=== PATIENT | female | born 1945 | race Caucasian/White ===

== ENCOUNTER 2016-10-27 08:03 | Day surgery (SDC) | payer MEDICARE, OTHER ==
[2016-10-26 11:29] VITALS: BMI 27.3
[2016-10-27] VITALS (9 sets, daily range): BP systolic 101–154; BP diastolic 56–74; PULSE 84–98; RESP 16–21; Ht 154.9 cm; Wt 62.0 kg
[~2016-10-27] VITALS: Ht 154.9 cm; Wt 62.0 kg
[~2016-10-27 08:03] MED LIST: ASPI-664 PO; DEXL60CA2 PO; LACT10SO5 PO; LYR75 PO; OLME1TAB20 PO
[2016-10-27 09:19] LABS: BASOPHILS % 0.5 % (0.0-2.0); EOSINOPHILS # 0.1 10^3/ul (0.0-0.5); HEMATOCRIT 35.6 % (37.0-47.0); HEMOGLOBIN 11.9 g/dl (12.0-16.0); LYMPHOCYTES # 1.9 10^3/ul (0.8-2.9); LYMPHOCYTES % 24.9 % (15.0-51.0); MEAN CORPUSCULAR HEMOGLOBIN 30.4 pg (29.0-33.0); MEAN CORPUSCULAR HGB CONC 33.4 g/dl (32.0-37.0); MEAN CORPUSCULAR VOLUME 91.1 fl (82.0-101.0); MONOCYTE # 0.6 10^3/ul (0.3-0.9); MONOCYTES % 7.5 % (0.0-11.0); NEUTROPHIL # 4.9 10^3/ul (1.6-7.5); NEUTROPHILS % 65.1 % (39.0-77.0); PLATELET COUNT 267 10^3/UL (140-440); RED CELL DISTRIBUTION WIDTH 13.9 % (11.5-14.5); UNCORRECTED WBC 7.5 10^3/ul (4.8-10.8); WHITE BLOOD COUNT 7.5 10^3/ul (4.8-10.8)
[2016-10-27 09:21] LABS: CONDITION 1
[2016-10-27 09:27] LABS: POTASSIUM 4.3 mmol/L (3.5-5.1)
[2016-10-27 09:30] LABS: CALCIUM 9.7 mg/dl (8.4-10.2); CREATININE 1.03 mg/dl (0.44-1.00)
[2016-10-27] MEDS ORDERED: IOHEXOL 300MG/ML 30 ML BTL ONE (10:27)
[2016-10-27] MEDS ORDERED: HYDROmorphONE (0.2 MG/ML) 10ML SYG IV PRN ×3 (10:30)
[2016-10-27] MEDS ORDERED: MEPERIDINE 25 MG INJ IV PRN (10:30)
[2016-10-27] MEDS ORDERED: FENTAnyl 50 MCG/ML VIAL IV PRN ×2 (10:30)
[2016-10-27] MEDS ORDERED: ONDANSETRON 4 MG INJ IV PRN (10:30)
[2016-10-27] MEDS ORDERED: PROPOFOL 20 ML ONE ×2 (10:35→11:55)
[2016-10-27] MEDS ORDERED: FENTAnyl 50 MCG/ML VIAL ONE (10:35)
--- NOTE | 2016-10-27 10:40 | HPN ---
Date/Time of Note Date/Time of Note DATE: 10/27/16 TIME: 10:39 Interval H&P Admission Note Pt. seen H&P reviewed: No system changes JAMIE VELAZQUEZ MD Oct 27, 2016 10:39
--- NOTE | 2016-10-27 11:03 | RADRPT ---
Vent Rate: 94 bpm RR Interval: [address] Interval: 146 msec QRS Duration: 72 msec QT Interval: 330 msec QTC Interval: 412 msec P-R-T [place]: 50 - 50 - 36 degrees Normal sinus rhythm Possible Left atrial enlargement ST abnormality, possible digitalis effect Abnormal ECG Electronically Signed By: Azar Patel [id number]
--- NOTE | 2016-10-27 12:50 | RADRPT ---
PROCEDURE: Intraoperative imaging for ERCP with fluoroscopy. CLINICAL INDICATION: Right upper quadrant pain. Intraoperative. TECHNIQUE: 2 images of the right upper quadrant of the abdomen were obtained in the operating room with an image intensifier. No radiologist was in attendance. 8.7 seconds of fluoroscopy time was used. COMPARISON: CT scan of the abdomen and pelvis dated 08/19/2016 which demonstrated biliary obstruct ion and two plastic stents in the common bile duct. FINDINGS: Images demonstrate placement of a metallic stent in the common bile duct. IMPRESSION: 1. ERCP as described above. RPTAT: QQ .Lamonte Alvares MD, Date Time Electronically viewed and signed by .Lamonte Alvares MD, on 10/27/2016 12:50 .R/
--- NOTE | 2016-10-27 18:08 | GILP ---
DATE OF PROCEDURE: PROCEDURE PERFORMED: EGD and placement of duodenal stent. INDICATION: A 70-year-old female undergoing this procedure for duodenal bulb obstruction secondary to the tumor invading the pancreatic head. The patient also is suffering from the heartburn, loss o f appetite and very early satiety. INFORMED CONSENT: The risk of the procedure, related and unrelated complications, anesthetic risks, alternatives discussed and informed consent was obtained. DESCRIPTION OF PROCEDURE: The patient was brought to the GI lab, sedated by Dr. Fernández and after ob taining sedation, scope was passed with much ease into the esophagus. Upper endoscope was used. Du odenal bulb, there was a definite external compression from outside, which was formed to hard in con sistency, managed to push the compression and advance into the second part of the duodenum, both my biliary stents were identified. At this point, we passed a guidewire and created a coil inside the third part inside the jejunum. The scope was then gradually withdrawn. The duodenal stent to 16 to 22 successfully passed over the guidewire, scope was also upper endoscope passed by the side of the stent and the stent was successfully deployed. The baseline was seen, the baseline was identified. Scope was then gradually withdrawn with good patient tolerance. Patient's position of the stent w as excellent. IMPRESSION: 1. Duodenal stent successfully deployed for the obstruction near the bulb ____ the tumor from the p ancreas. 2. Erosive esophagitis. PLAN: To start on a liquid diet and advance it as tolerated by the patient. We will follow up the patient in the office in 1 week. Dictated By: JAMIE PAULINO/MARILUZ Conf#: [id number] DID#: [id number]
== END 2016-10-27 13:25 | disposition home or self-care (01) ==
LOC: SDS 08:03
PROVIDERS: ATTEND Internal Medicine Gastroenterology
DX: C25.0 Malignant neoplasm of head of pancreas (principal); K31.5 Obstruction of duodenum; K22.10 Ulcer of esophagus without bleeding; R12 Heartburn; K21.9 Gastro-esophageal reflux disease without esophagitis; R63.0 Anorexia; Z68.25 Body mass index [BMI] 25.0-25.9, adult; R68.81 Early satiety
CPT/HCPCS: 43266; 74000; 80048; 85025; 93005; C2617; J3010; Q9967

== ENCOUNTER 2016-12-13 13:57 | Inpatient (IN) | payer MEDICARE, OTHER ==
[~2016-12-13] VITALS: Ht 157.5 cm; Wt 60.0 kg
[2016-12-13] MEDS ORDERED: SOD CHLORIDE 0.9% 1,000 ML IV STA (17:01)
--- NOTE | 2016-12-13 17:18 | ERA ---
ER Documentation Chief Complaint Date/Time DATE: 12/13/16 TIME: 17:05 Chief Complaint gen ap and gen weakness for the past few months. 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 Generalized weakness is worsening to the point where she has difficulty walking and feels dizzy and lightheaded when standing. Ongoing mild to moderate, crampy and sharp, generalized upper abdominal pain with nausea but no vomiting, diarrhea or constipation. Denies hematemesis, hematochezia or melanotic stools. Denies headache or neck pain. No visual changes, focal weakness or numbness. Denies chest pain or palpitations. No shortness of breath or cough. Denies orthopnea or exertional dyspnea. No leg pain or swelling. No fevers or chills. ROS All systems reviewed and are negative except as per history of present illness. Medications Home Meds Reported Medications Acetaminophen* (Tylenol*) 500 Mg Tab, 500 MG PO Q4H Y for MILD PAIN LEVEL 1-3, TAB 12/13/16 Lubiprostone* (Amitiza*) 24 Mcg Capsule, 24 MCG PO DAILY, #30 CAP 12/13/16 Discontinued Reported Medications Pregabalin* (Lyrica*) 75 Mg Capsule, 75 MG PO BID, CAP 08/19/16 Lactulose* (Lactulose*) 10 Gm/15 Ml Solution, 10 GM PO Q8, ML 07/20/16 Aspirin (Low Dose Aspirin) 81 Mg Tablet., 81 MG PO DAILY, #30 TAB 07/20/16 Olmesartan-Hydrochlorothiazide (Benicar HCT) 40-25 Mg Tablet, 1 TAB PO DAILY, TAB 12/25/14 Dexlansoprazole (Dexilant) 60 Mg Cap., 60 MG PO DAILY, CAP 12/25/14 Allergies Allergies: Coded Allergies: No Known Allergy (Unverified , 12/13/16) PMhx/Soc Reviewed in chart. As per HPI. History of Surgery: Yes (ovarian cystectomy) Anesthesia Reaction: No Hx Neurological Disorder: No Hx Respiratory Disorders: No Hx Cardiac Disorders: Yes (htn) Hx Psychiatric Problems: No Hx Miscellaneous Medical Probl: Yes (vertigo) Hx Alcohol Use: No Hx Substance Use: No Hx Tobacco Use: No Smoking Status: Never smoker FmHx Reviewed in chart. As per HPI. Physical Exam Vitals Vital Signs Date Time Temp Pulse Resp B/P Pulse Ox O2 Delivery O2 Flow Rate FiO2 12/13/16 21:10 82 18 143/70 98 Room Air 12/13/16 18:47 83 18 133/61 98 Room Air 12/13/16 14:11 99.3 110 20 102/54 98 Physical Exam Const: Alert, ill-appearing in no acute distress. Head: Atraumatic Eyes: Normal Conjunctiva ENT: Normal External Ears, Nose and Mouth. Neck: Full range of motion. No JVD. Nontender Resp: Breath sounds diminished at the bases but otherwise clear to auscultation bilaterally Cardio: Regular rate and rhythm, no murmurs Abd: Soft, diffuse moderate upper abdominal tenderness, non distended. Normal bowel sounds. No rebound or guarding Skin: No petechiae or rashes Back: No midline or flank tenderness Ext: No cyanosis, or edema Neur: Awake and alert. No focal deficit observed Psych: Normal Mood and Affect Result Diagram: 12/14/1643412/14/16 0435 Results 24 hrs Laboratory Tests Test 12/13/16 19:30 Alanine Aminotransferase (ALT/SGPT) 33IU/L Albumin 2.3g/dl Albumin/Globulin Ratio 0.44 Alkaline Phosphatase 1209IU/L Anion Gap 13 Aspartate Amino Transf (AST/SGOT) 41IU/L Basophils # 0.010^3/ul Basophils % 0.4% Blood Urea Nitrogen 14mg/dl Calcium Level 8.2mg/dl Carbon Dioxide Level 21mmol/L Chloride Level 96mmol/L Creatinine 0.82mg/dl Direct Bilirubin 0.00mg/dl Eosinophils # 0.110^3/ul Eosinophils % 0.7% Globulin 5.20g/dl Glucose Level 286mg/dl Hematocrit 31.7% Hemoglobin 10.9g/dl Indirect Bilirubin 0.0mg/dl Lipase 50U/L Lymphocytes # 1.810^3/ul Lymphocytes % 16.2% Mean Corpuscular Hemoglobin 30.3pg Mean Corpuscular Hemoglobin Concent 34.4g/dl Mean Corpuscular Volume 88.1fl Mean Platelet Volume 9.5fl Monocytes # 0.810^3/ul Monocytes % 7.6% Neutrophils # 8.110^3/ul Neutrophils % 74.5% Nucleated Red Blood Cells # 0.010^3/ul Nucleated Red Blood Cells % 0.0/100WBC Platelet Count 05395^3/UL Potassium Level 3.8mmol/L Red Blood Count 3.6010^6/ul Red Cell Distribution Width 14.3% Sodium Level 126mmol/L Total Bilirubin 0.0mg/dl Total Protein 7.5g/dl White Blood Count 10.910^3/ul Current Medications Medications (Trade) Dose Ordered Sig/Nigel Route PRN Reason Start Time Stop Time Status Last Admin Dose Admin Sodium Chloride 1,000 ml @ 75 mls/hr [id number] STAT IV 12/13/16 17:01 12/14/16 06:20 DC 12/13/16 17:18 Sodium Chloride (NS) 1,000 ml @ 80 mls/hr [id number] IV 12/13/16 21:28 12/14/16 09:57 DC Procedures/MDM DOCUMENTS REVIEWED: ED nurse, prior ED, prior records ED COURSE: Normal saline at 75 cc an hour MEDICAL DECISION MAKIN-year-old hypertensive female with a 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 Patient refused analgesics. No vomiting or signs of obstruction. No rebound guarding or evidence of peritonitis. Hyperglycemia without history of diabetes or evidence of DKA. Possible new onset diabetes. Patient with anorexia, weakness and dehydration will be admitted for intravenous hydration, further evaluation and management. Counseled patient and family regarding diagnosis, diagnostic results and plan for admission. CALLS/CONSULTS: Time 17:05, Dr. Corona, Recommends admission. CALLS/CONSULTS: Time 19:55, Dr. Bruce Mehta, Recommends [facility] observation. PATIENT CARE TRANSITIONED: Time: 20:30, Dr. Bruce Mehta. Departure Diagnosis: Primary Impression: Cholangiocarcinoma Additional Impressions: Dehydration Hyperglycemia Abdominal pain Qualified Code: R10.10 - Pain of upper abdomen Pancreatic mass Condition: Serious JAED BOWMAN MD Dec 13, 2016 17:17 Diagnosis: Primary Impression: Cholangiocarcinoma Additional Impressions: Dehydration Hyperglycemia Condition: Serious JADE BOWMAN MD Dec 13, 2016 17:17
[2016-12-13] MEDS ORDERED: TYL500 PO (17:54)
[2016-12-13] MEDS ORDERED: LUBI24CA7 PO (17:54)
[2016-12-13 19:38] LABS: ADD SCAN DIFF NO
[2016-12-13 19:40] LABS: BASOPHILS % 0.4 % (0.0-2.0); EOSINOPHILS # 0.1 10^3/ul (0.0-0.5); EOSINOPHILS % 0.7 % (0.0-7.0); HEMATOCRIT 31.7 % (37.0-47.0); HEMOGLOBIN 10.9 g/dl (12.0-16.0); LYMPHOCYTES # 1.8 10^3/ul (0.8-2.9); LYMPHOCYTES % 16.2 % (15.0-51.0); MEAN CORPUSCULAR HEMOGLOBIN 30.3 pg (29.0-33.0); MEAN CORPUSCULAR HGB CONC 34.4 g/dl (32.0-37.0); MEAN CORPUSCULAR VOLUME 88.1 fl (82.0-101.0); MEAN PLATELET VOLUME 9.5 fl (7.4-10.4); MONOCYTE # 0.8 10^3/ul (0.3-0.9); MONOCYTES % 7.6 % (0.0-11.0); NEUTROPHIL # 8.1 10^3/ul (1.6-7.5); NEUTROPHILS % 74.5 % (39.0-77.0); PLATELET COUNT 281 10^3/UL (140-415); RED CELL DISTRIBUTION WIDTH 14.3 % (11.5-14.5); WHITE BLOOD COUNT 10.9 10^3/ul (4.8-10.8)
[2016-12-13 19:49] LABS: ALBUMIN 2.3 g/dl (3.3-4.9); POTASSIUM 3.8 mmol/L (3.5-5.1)
[2016-12-13 19:52] LABS: CALCIUM 8.2 mg/dl (8.4-10.2); CREATININE 0.82 mg/dl (0.44-1.00); TOTAL PROTEIN 7.5 g/dl (6.1-8.1)
[2016-12-13 19:58] LABS: ALBUMIN/GLOBULIN RATIO 0.44
[2016-12-13] MEDS ORDERED: SOD CHLORIDE 0.9% 1,000 ML IV SCH (21:28)
[2016-12-13] MEDS ORDERED: ONDANSETRON 4 MG INJ IV PRN ×2 (21:30→23:00)
[2016-12-13] MEDS ORDERED: ACETAMINOPHEN 325 MG TAB PO PRN (21:30)
[2016-12-13 22:47] VITALS: Ht 157.5 cm; Wt 60.0 kg
[2016-12-13 22:48] VITALS: BP 140/70; PULSE 68; RESP 18
[2016-12-13] MEDS ORDERED: MAGNESIUM HYDROXIDE 30ML CUP PO PRN (23:00)
[2016-12-13] MEDS ORDERED: NACL 0.9% 3 ML SYG IV SCH (23:00)
[2016-12-13] MEDS ORDERED: morphine 2 MG INJ IV PRN (23:00)
[2016-12-13] MEDS ORDERED: DOCUSATE SODIUM 100 MG CAP PO PRN (23:00)
[2016-12-13] MEDS ORDERED: ACETAMINOPHEN 650 MG SUPP PR PRN (23:00)
[2016-12-13] MEDS ORDERED: ZOLPIDEM 5 MG TAB PO PRN (23:00)
[2016-12-13] MEDS: SOD CHLORIDE 0.9% 1,000 ML IV SCH (23:19)
[2016-12-14 05:30] LABS: ADD SCAN DIFF NO
[2016-12-14] MEDS: PANTOPRAZOLE 40 MG INJ IV SCH (05:39)
[2016-12-14 05:50] LABS: ALBUMIN 2.2 g/dl (3.3-4.9)
[2016-12-14 05:53] LABS: ALBUMIN/GLOBULIN RATIO 0.47; CALCIUM 7.9 mg/dl (8.4-10.2); CREATININE 0.72 mg/dl (0.44-1.00); TOTAL PROTEIN 6.8 g/dl (6.1-8.1)
[2016-12-14 06:42] LABS: BASOPHIL # 0.1 10^3/ul (0.0-0.1); BASOPHILS % 0.6 % (0.0-2.0); EOSINOPHILS # 0.3 10^3/ul (0.0-0.5); HEMATOCRIT 30.8 % (37.0-47.0); HEMOGLOBIN 10.6 g/dl (12.0-16.0); LYMPHOCYTES # 1.9 10^3/ul (0.8-2.9); LYMPHOCYTES % 15.1 % (15.0-51.0); MEAN CORPUSCULAR HEMOGLOBIN 30.2 pg (29.0-33.0); MEAN CORPUSCULAR HGB CONC 34.4 g/dl (32.0-37.0); MEAN CORPUSCULAR VOLUME 87.7 fl (82.0-101.0); MONOCYTE # 0.9 10^3/ul (0.3-0.9); MONOCYTES % 7.2 % (0.0-11.0); NEUTROPHIL # 9.3 10^3/ul (1.6-7.5); NEUTROPHILS % 74.6 % (39.0-77.0); PLATELET COUNT 296 10^3/UL (140-415); RED BLOOD COUNT 3.51 10^6/ul (4.20-5.40); RED CELL DISTRIBUTION WIDTH 14.5 % (11.5-14.5); WHITE BLOOD COUNT 12.5 10^3/ul (4.8-10.8)
[2016-12-14 07:21] LABS: POTASSIUM 2.9 mmol/L (3.5-5.1)
[2016-12-14 07:49] VITALS: BP 126/59; RESP 18
[2016-12-14] MEDS ORDERED: ENOXAPARIN 30 MG/0.3 ML SYG SC SCH (09:00)
[2016-12-14] MEDS: LUBIPROSTONE 24 MCG CAP PO SCH (09:00)
[2016-12-14] MEDS: POTASSIUM CHLORIDE 250 ML IVPB SCH ×2 (11:52→16:24)
--- NOTE | 2016-12-14 14:02 | RADRPT ---
PROCEDURE: XR Abdomen. CLINICAL INDICATION: 71-year-old patient, status post duodenal stent placement. TECHNIQUE: AP abdomen x-ray. COMPARISON: Intraoperative KUB 10/27/2016 11:55 a.m. FINDINGS: There are parallel common bile duct and left hepatic duct stents in place. The duodenal stent is id entified in the right upper quadrant. Degenerative osteophytes are present in the thoracic and lumb ar spine. There are old healed small bowel loops. There is scattered air and fecal material in the colon. IMPRESSION: 1. A wire mesh duodenal stent is deployed to the right of the L1-2 intervertebral disk space. 2. 2 parallel biliary stents are noted in the right upper quadrant. 3. Reflex ileus. RPTAT:AAJJ Physician Fang Date Time Electronically viewed and signed by Stiven Ace Physician on 12/14/2016 14:02 NALDO/
[2016-12-14] MEDS: SOD CHLORIDE 0.9% 1,000 ML IV SCH (18:03)
[2016-12-14 19:50] VITALS: BP 143/65; RESP 20
--- NOTE | 2016-12-14 20:40 | QN ---
Documentation Comment [id number] CATA DUARTE MD Dec 14, 2016 20:40
--- NOTE | 2016-12-14 21:01 | HP ---
DATE OF ADMISSION: 12/13/2016 HISTORY OF PRESENT ILLNESS: Patient was seen today and discussed with Dr. Corona. The patient with a history of cholangiocarcinoma secondary to pancreatic mass, history of sepsis, history of E colit is, history of debility. The patient was sent in by Dr. Corona, since patient has poor p.o. intake and abdominal pain. Now patient wants full treatment to be done and Dr. Chloe astorga do endoscopic ultrasound, biopsy and we will go from there. PAST MEDICAL HISTORY: Is positive for a history of cholangiocarcinoma, common bile duct obstruction status post ERCP and stent placement, hypertension, neuropathy. The patient has a history of dyspe psia. ALLERGY HISTORY: NEGATIVE. FAMILY HISTORY: Negative. SOCIAL HISTORY: Negative. MEDICATION HISTORY Listed as, the patient is on: 1. Tylenol. 2. Amitiza. REVIEW OF SYSTEMS HEENT: Unremarkable. RESPIRATORY: Unremarkable. CARDIOVASCULAR: Unremarkable. ABDOMEN: As mentioned above. ____ . EXTREMITIES: Unremarkable. CENTRAL NERVOUS SYSTEM: Unremarkable. PHYSICAL EXAMINATION GENERAL: The patient is awake, alert. VITAL SIGNS: Stable. HEENT: Head is atraumatic, normocephalic. Pupils equal, reactive to light. No pallor or conjuncti jyothi icterus. NECK: Supple. No JVD. LUNGS: Clear. CARDIOVASCULAR: S1, S2 normal. ABDOMEN: Soft, nontender. Bowel sounds present. No palpable mass or hepatosplenomegaly. No guard ing, rebound tenderness. EXTREMITIES: No cyanosis, clubbing, edema. CENTRAL NERVOUS SYSTEM: Awake, alert; no focal deficit. LABORATORY DATA: WBC 10.9, hematocrit 31.7, platelet count of 281. Patient's potassium 2.9, sodium 126 now 129. X-RAY: Of the abdomen shows a wire mesh. Duodenal stent is deployed to the right of the L1-L2 inte rvertebral disk space. IMPRESSION The patient has: 1. cholangiocarcinoma status post duodenal stent. The patient's other diagnoses include: 2. Hypokalemia. 3. Hyponatremia. 4. Leukocytosis. PLAN: The patient is currently on Amitiza, Protonix, Tylenol, Zofran. The patient will also have IV fluid given and patient will be started on possible empiric antibiotic. After obtaining UA, C an d S orders were done. Other recommendation per Dr. Corona. Dictated By: CATA PRIEST/NTS Conf#: [id number] DID#: [id number]
[2016-12-14] MEDS: ACETAMINOPHEN 500 MG TAB PO PRN (21:04)
--- NOTE | 2016-12-14 21:35 | CONS ---
DATE OF ADMISSION: 12/13/2016 DATE OF CONSULTATION: 12/14/2016 HISTORY OF PRESENT ILLNESS: The patient is a 71-year-old female who was originally referred to my valerie linn for jaundice. Her bilirubin was around 30. The patient underwent ERCP and was found to have a cholangiocarcinoma endoscopically. Two stents were deployed successfully in the right hepatic benson t and left hepatic duct. Bilirubin came down and has remained normal for the last 5 months. Marjorie toledo, the patient's repeat CAT scan after 3 or 4 months revealed the tumor had migrated to the pancreas and she had also the duodenal obstruction, so I put self-expanding metallic stent in the duodenum. The patient has no pain, only complaint is poor appetite. The came to my office yesterday stating that she is unable to walk. She is very tired and fatigued. Her son also called me, so I r eferred the patient to the ER for evaluation and possible admission. In the ER, the patient was terri luated and found to be clinically dehydrated and hyponatremic, so was admitted for further managemen t. I had a lengthy discussion with the patient regarding biopsy and possible chemo. Originally she had declined it, but I told her son wanted it and she finally agreed for the tissue diagnosis. My cytology was positive for atypical cells. ALLERGIES: None. PAST MEDICAL HISTORY: As described. Besides, she is hypertensive. SOCIAL HISTORY: Does not smoke or drink, lives with her . PHYSICAL EXAMINATION: GENERAL: Moderately built, nourished, not in distress. VITAL SIGNS: Stable. HEENT: Unremarkable. NECK: Supple, no thyromegaly, no lymphadenopathy. CARDIOVASCULAR: No murmur, gallop or click. LUNGS: Clear. EXTREMITIES: No edema. CENTRAL NERVOUS SYSTEM: Grossly within normal limits. LABORATORY DATA: Her hematocrit is 31. WBC is within normal limits. Liver function is totally no rmal. Glucose is 112 now. Alkaline phosphatase is elevated at 2211, potassium is 2.9. Sodium is i mproved from 126 to 129.. IMPRESSION: 1. Profound weakness. 2. Dehydration. 3. Hypokalemia. 4. Hyponatremia. 5. Elevated alkaline phosphatase. 6. Obstructing hilar lesion, status post bilateral stent with good relief from the obstruction. 7. 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 8. Duodenal obstruction status post self-expanding metallic stent. 9. Hypertension. 10. Anorexia. PLAN: 1. At this point, is to get a tissue diagnosis and offer treatment in the form of either chemoradia tion if patient is agreeable. 2. In the interim, we will correct electrolyte imbalance. 3. Continue IV hydration. The patient may be placed on Megace to stimulate appetite. Thank you again for the referral. Dictated By: JAMIE PAULINO/MARILUZ Conf#: [id number] DID#: [id number] CC: CAIT WILLIAMSON CATERING OPERATIONS MANAGER; CATA DUARTE MD;*EndCC*
[2016-12-14] MEDS: CEFTRIAXONE 2 GM/50 ML (PMX) 50 ML IVPB SCH (21:59)
[2016-12-15 05:06] LABS: ADD SCAN DIFF NO
[2016-12-15 05:10] LABS: BASOPHIL # 0.1 10^3/ul (0.0-0.1); BASOPHILS % 0.8 % (0.0-2.0); EOSINOPHILS # 0.5 10^3/ul (0.0-0.5); EOSINOPHILS % 4.3 % (0.0-7.0); HEMATOCRIT 29.9 % (37.0-47.0); HEMOGLOBIN 10.1 g/dl (12.0-16.0); LYMPHOCYTES # 2.6 10^3/ul (0.8-2.9); LYMPHOCYTES % 21.8 % (15.0-51.0); MEAN CORPUSCULAR HEMOGLOBIN 29.7 pg (29.0-33.0); MEAN CORPUSCULAR HGB CONC 33.8 g/dl (32.0-37.0); MEAN CORPUSCULAR VOLUME 87.9 fl (82.0-101.0); MEAN PLATELET VOLUME 9.8 fl (7.4-10.4); MONOCYTE # 1.1 10^3/ul (0.3-0.9); MONOCYTES % 9.1 % (0.0-11.0); NEUTROPHIL # 7.4 10^3/ul (1.6-7.5); NEUTROPHILS % 63.4 % (39.0-77.0); PLATELET COUNT 270 10^3/UL (140-415); WHITE BLOOD COUNT 11.7 10^3/ul (4.8-10.8)
[2016-12-15 05:37] LABS: ALBUMIN 2.1 g/dl (3.3-4.9)
[2016-12-15 05:38] LABS: POTASSIUM 4.1 mmol/L (3.5-5.1)
[2016-12-15 05:40] LABS: ALBUMIN/GLOBULIN RATIO 0.45; CREATININE 0.7 mg/dl (0.44-1.00); TOTAL PROTEIN 6.7 g/dl (6.1-8.1)
[2016-12-15] MEDS: PANTOPRAZOLE 40 MG INJ IV SCH (05:52)
[2016-12-15] MEDS: LUBIPROSTONE 24 MCG CAP PO SCH (07:32)
[2016-12-15 08:48] VITALS: BP 131/60; RESP 18
[2016-12-15] MEDS: SOD CHLORIDE 0.9% 1,000 ML IV SCH (09:37)
[2016-12-15 10:08] LABS: INR 1.27; PT RATIO 1.3
[2016-12-15 10:09] LABS: PARTIAL THROMBOPLASTIN TIME 38.1 Sec (25.0-35.0)
[2016-12-15 10:34] LABS: ADD UMIC NO; URINE BILIRUBIN (Dip) NEGATIVE (NEGATIVE); URINE BLOOD (Dip) NEGATIVE (NEGATIVE); URINE COLOR LT. YELLOW (YELLOW); URINE GLUCOSE (Dip) NEGATIVE (NEGATIVE); URINE KETONES (Dip) NEGATIVE (NEGATIVE); URINE LEUKOCYTE ESTERASE (Dip) NEGATIVE (NEGATIVE); URINE NITRITE (Dip) NEGATIVE (NEGATIVE); URINE TOTAL PROTEIN (Dip) NEGATIVE (NEGATIVE); URINE UROBILINOGEN (Dip) 0.2 E.U./dL (0.1-1.0)
--- NOTE | 2016-12-15 10:46 | CONS ---
Date/Time of Note Date/Time of Note DATE: 12/15/16 TIME: 10:45 Assessment/Plan Assessment/Plan Additional Assessment/Plan IMPRESSION: 1. Profound weakness. 2. Dehydration. 3. Hypokalemia. 4. Hyponatremia. 5. Elevated alkaline phosphatase. 6. Obstructing hilar lesion, status post bilateral stent with good relief from the obstruction. 7. 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 8. Duodenal obstruction status post self-expanding metallic stent. 9. Hypertension. 10. Anorexia. Plan pancreatic mass biopsy continue present care Consultation Date/Type/Reason Admit Date/Time Dec 13, 2016 at 21:29 Initial Consult Date 24 HR Interval Summary Constitutional: improved, no complaints Exam/Review of Systems Vital Signs Vitals Vital Signs Date Time Temp Pulse Resp B/P Pulse Ox O2 Delivery O2 Flow Rate FiO2 12/15/16 08:48 97.7 84 18 131/60 100 12/13/16 22:48 Room Air Intake and Output 12/14/16 12/14/16 12/15/16 15:00 23:00 07:00 Intake Total 1585 ml 240 ml Balance 1585 ml 240 ml Exam Constitutional: alert, oriented, well developed Psych: nl mood/affect, no complaints Head: atraumatic, normocephalic Eyes: EOMI, PERRL, nl conjunctiva, nl lids, nl sclera ENMT: nl external ears & nose, nl lips & teeth, nl nasal mucosa & septum Neck: non-tender, supple Respiratory: clear to auscultation, normal air movement Cardiovascular: nl pulses, regular rate and rhythm Gastrointestinal: nl liver, spleen, non-tender, soft Musculoskeletal: nl extremities to inspection, nl gait and stance Extremities: normal pulses Neurological: BALLOON TESTER II-XII intact, nl mental status, nl speech, nl strength Skin: nl turgor, No rash or lesions Lymph: nl lymph nodes Results Result Diagram: 12/15/165 12/15/16424 Results 24 hrs Laboratory Tests Test 12/15/16 04:25 12/15/16 06:32 12/15/16 09:10 Alanine Aminotransferase (ALT/SGPT) 39 Albumin 2.1 L Albumin/Globulin Ratio 0.45 Alkaline Phosphatase 1090 H Anion Gap 12 Aspartate Amino Transf (AST/SGOT) 45 Basophils # 0.1 Basophils % 0.8 Blood Urea Nitrogen 11 Calcium Level 8.0 L Carbon Dioxide Level 20 L Chloride Level 105 Creatinine 0.70 Direct Bilirubin 0.00 Eosinophils # 0.5 Eosinophils % 4.3 Globulin 4.60 H Glucose Level 102 Hematocrit 29.9 L Hemoglobin 10.1 L Indirect Bilirubin 0.0 Lymphocytes # 2.6 Lymphocytes % 21.8 Mean Corpuscular Hemoglobin 29.7 Mean Corpuscular Hemoglobin Concent 33.8 Mean Corpuscular Volume 87.9 Mean Platelet Volume 9.8 Monocytes # 1.1 H Monocytes % 9.1 Neutrophils # 7.4 Neutrophils % 63.4 Nucleated Red Blood Cells # 0.0 Nucleated Red Blood Cells % 0.0 Platelet Count 270 Potassium Level 4.1 Red Blood Count 3.40 L Red Cell Distribution Width 15.0 H Sodium Level 133 L Total Bilirubin 0.0 L Total Protein 6.7 White Blood Count 11.7 H Urine Bilirubin NEGATIVE Urine Clarity CLEAR Urine Color LT. YELLOW Urine Glucose NEGATIVE Urine Hemoglobin NEGATIVE Urine Ketones NEGATIVE Urine Leukocyte Esterase NEGATIVE Urine Nitrite NEGATIVE Urine Specific [place] 1.010 Urine Total Protein NEGATIVE Urine Urobilinogen 0.2 E.U./dL Urine pH 6.0 Activated Partial Thromboplast Time 38.1 H INR International Normalized Ratio 1.27 Prothrombin Time 16.0 H Prothrombin Time Ratio 1.3 Medications Medications Current Medications Acetaminophen (Tylenol Tab) 500 mg Q4H PRN PO MILD PAIN LEVEL 1-3 Last administered on 12/14/16 21:04; Admin Dose 500 MG; Start 12/13/16 at 23:00 Lubiprostone 24 mcg 24 mcg DAILY PO ; Start 12/14/16 at 09:00 Sodium Chloride (NS) 1,000 ml @ 50 mls/hr Q20H IV Last administered on 09:37; Admin Dose 50 MLS/HR; Start 12/13/16 at 22:54 Ondansetron HCl (Zofran Inj) 4 mg Q6H PRN IV NAUSEA AND/OR VOMITING; Start at 23:00 Acetaminophen (Tylenol Tab) 650 mg Q6H PRN PO PAIN LEVEL 1-3 OR FEVER; Start at 23:00 Acetaminophen (Tylenol Supp) 650 mg Q6H PRN [place] PAIN LEVEL 1-3 OR FEVER; Start 12/13/16 at 23:00 Morphine Sulfate (morphine) 2 mg Q4H PRN IV SEVERE PAIN LEVEL 7-10; Start 12/13 at 23:00 Docusate Sodium (Colace) 100 mg Q12H PRN PO CONSTIPATION; Start 12/13/16 at 23: 00 Magnesium Hydroxide (Milk Of Mag) 30 ml DAILY PRN PO CONSTIPATION; Start at 23:00 Zolpidem Tartrate (Ambien) 5 mg QHS PRN PO SLEEP; Start 12/13/16 at 23:00 Pantoprazole (Protonix Iv) 40 mg DAILY@06 IV Last administered on 12/15/16 05: 52; Admin Dose 40 MG; Start 12/14/16 at 06:00 Enoxaparin Sodium 30 mg 30 mg DAILY SC Last administered on 12/14/16 09:29; Admin Dose 30 MG; Start 12/14/16 at 09:00; Status Future Hold Ceftriaxone Sodium (Rocephin) 50 ml @ 100 mls/hr Q24H IVPB Last administered on 12/14/16 21:59; Admin Dose 100 MLS/HR; Start 12/14/16 at 22:00 JAMIE VELAZQUEZ MD Dec 15, 2016 10:46
--- NOTE | 2016-12-15 16:59 | PN ---
Date/Time of Note Date/Time of Note DATE: 12/15/16 TIME: 16:58 Assessment/Plan VTE Prophylaxis VTE Prophylaxis Intervention: other Lines/Catheters IV C[facility] Type ([facility] Peripheral IV Urinary Cath still in place: No Assessment/Plan Chief Complaint/Hosp Course IMPRESSION The patient has: 1. cholangiocarcinoma status post duodenal stent. The patient's other diagnoses include: 2. Hypokalemia. BETTER 3. Hyponatremia. BETTER 4. Leukocytosis. PLAN PER GI Problems: Subjective 24 Hr Interval Summary Respiratory: no complaints Cardiovascular: no complaints Gastrointestinal: No pain Exam/Review of Systems Vital Signs Vitals Vital Signs Date Time Temp Pulse Resp B/P Pulse Ox O2 Delivery O2 Flow Rate FiO2 12/15/16 08:48 97.7 84 18 131/60 100 12/13/16 22:48 Room Air Intake and Output 12/14/16 12/14/16 12/15/16 15:00 23:00 07:00 Intake Total 1585 ml 240 ml Balance 1585 ml 240 ml Exam Neck: supple Cardiovascular: regular rate and rhythm Gastrointestinal: bowel sounds (+), soft Results Result Diagram: 12/15/16 0425 12/15/16 0425 Results 24 hrs Laboratory Tests Test 12/15/16 04:25 12/15/16 06:32 12/15/16 09:10 Alanine Aminotransferase (ALT/SGPT) 39 Albumin 2.1 L Albumin/Globulin Ratio 0.45 Alkaline Phosphatase 1090 H Anion Gap 12 Aspartate Amino Transf (AST/SGOT) 45 Basophils # 0.1 Basophils % 0.8 Blood Urea Nitrogen 11 Calcium Level 8.0 L Carbon Dioxide Level 20 L Chloride Level 105 Creatinine 0.70 Direct Bilirubin 0.00 Eosinophils # 0.5 Eosinophils % 4.3 Globulin 4.60 H Glucose Level 102 Hematocrit 29.9 L Hemoglobin 10.1 L Indirect Bilirubin 0.0 Lymphocytes # 2.6 Lymphocytes % 21.8 Mean Corpuscular Hemoglobin 29.7 Mean Corpuscular Hemoglobin Concent 33.8 Mean Corpuscular Volume 87.9 Mean Platelet Volume 9.8 Monocytes # 1.1 H Monocytes % 9.1 Neutrophils # 7.4 Neutrophils % 63.4 Nucleated Red Blood Cells # 0.0 Nucleated Red Blood Cells % 0.0 Platelet Count 270 Potassium Level 4.1 Red Blood Count 3.40 L Red Cell Distribution Width 15.0 H Sodium Level 133 L Total Bilirubin 0.0 L Total Protein 6.7 White Blood Count 11.7 H Urine Bilirubin NEGATIVE Urine Clarity CLEAR Urine Color LT. YELLOW Urine Glucose NEGATIVE Urine Hemoglobin NEGATIVE Urine Ketones NEGATIVE Urine Leukocyte Esterase NEGATIVE Urine Nitrite NEGATIVE Urine Specific [place] 1.010 Urine Total Protein NEGATIVE Urine Urobilinogen 0.2 E.U./dL Urine pH 6.0 Activated Partial Thromboplast Time 38.1 H INR International Normalized Ratio 1.27 Prothrombin Time 16.0 H Prothrombin Time Ratio 1.3 Medications Medications Current Medications Acetaminophen (Tylenol Tab) 500 mg Q4H PRN PO MILD PAIN LEVEL 1-3 Last administered on 12/14/16 21:04; Admin Dose 500 MG; Start 12/13/16 at 23:00 Lubiprostone 24 mcg 24 mcg DAILY PO ; Start 12/14/16 at 09:00 Sodium Chloride (NS) 1,000 ml @ 50 mls/hr Q20H IV Last administered on 09:37; Admin Dose 50 MLS/HR; Start 12/13/16 at 22:54 Ondansetron HCl (Zofran Inj) 4 mg Q6H PRN IV NAUSEA AND/OR VOMITING; Start at 23:00 Acetaminophen (Tylenol Tab) 650 mg Q6H PRN PO PAIN LEVEL 1-3 OR FEVER; Start at 23:00 Acetaminophen (Tylenol Supp) 650 mg Q6H PRN [place] PAIN LEVEL 1-3 OR FEVER; Start 12/13/16 at 23:00 Morphine Sulfate (morphine) 2 mg Q4H PRN IV SEVERE PAIN LEVEL 7-10; Start 12/13 at 23:00 Docusate Sodium (Colace) 100 mg Q12H PRN PO CONSTIPATION; Start 12/13/16 at 23: 00 Magnesium Hydroxide (Milk Of Mag) 30 ml DAILY PRN PO CONSTIPATION; Start at 23:00 Zolpidem Tartrate (Ambien) 5 mg QHS PRN PO SLEEP; Start 12/13/16 at 23:00 Pantoprazole (Protonix Iv) 40 mg DAILY@06 IV Last administered on 12/15/16 05: 52; Admin Dose 40 MG; Start 12/14/16 at 06:00 Enoxaparin Sodium 30 mg 30 mg DAILY SC Last administered on 12/14/16 09:29; Admin Dose 30 MG; Start 12/14/16 at 09:00; Status Future Hold Ceftriaxone Sodium (Rocephin) 50 ml @ 100 mls/hr Q24H IVPB Last administered on 12/14/16 21:59; Admin Dose 100 MLS/HR; Start 12/14/16 at 22:00 CATA DUARTE MD Dec 15, 2016 16:59
[2016-12-15 20:23] VITALS: BP 130/60; RESP 20
[2016-12-15] MEDS: ACETAMINOPHEN 500 MG TAB PO PRN (21:58)
[2016-12-15] MEDS: CEFTRIAXONE 2 GM/50 ML (PMX) 50 ML IVPB SCH (21:58)
[2016-12-16] MEDS ORDERED: VITAMIN A & D 5 GM OINT PACKET TOP ONE (05:22)
[2016-12-16] MEDS: PANTOPRAZOLE 40 MG INJ IV SCH (05:42)
[2016-12-16 08:29] VITALS: BP 129/61; RESP 20
[2016-12-16] MEDS: SOD CHLORIDE 0.9% 1,000 ML IV SCH (08:39)
[2016-12-16] MEDS: LUBIPROSTONE 24 MCG CAP PO SCH (08:39)
--- NOTE | 2016-12-16 11:15 | CONS ---
Date/Time of Note Date/Time of Note DATE: 12/16/16 TIME: 11:14 Assessment/Plan Assessment/Plan Additional Assessment/Plan Additional Assessment/Plan IMPRESSION: 1. Profound weakness. 2. Dehydration. 3. Hypokalemia. 4. Hyponatremia. 5. Elevated alkaline phosphatase. 6. Obstructing hilar lesion, status post bilateral stent with good relief from the obstruction. 7. 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 8. Duodenal obstruction status post self-expanding metallic stent. 9. Hypertension. 10. Anorexia. Plan pancreatic mass biopsy,not done based on old CT scan,I discussed with Dr. Lamonte Alvares and ordered another CT guided biopsy continue present care Consultation Date/Type/Reason Admit Date/Time Dec 15, 2016 at 14:27 24 HR Interval Summary Free Text/Dictation anorexia Exam/Review of Systems Vital Signs Vitals Vital Signs Date Time Temp Pulse Resp B/P Pulse Ox O2 Delivery O2 Flow Rate FiO2 12/16/16 08:29 98.0 82 20 129/61 98 12/13/16 22:48 Room Air Intake and Output 12/15/16 12/15/16 12/16/16 15:00 23:00 07:00 Intake Total 940 ml 910 ml Balance 940 ml 910 ml Exam Constitutional: alert, oriented, well developed Psych: nl mood/affect, no complaints Head: atraumatic, normocephalic Eyes: EOMI, PERRL, nl conjunctiva, nl lids, nl sclera ENMT: nl external ears & nose, nl lips & teeth, nl nasal mucosa & septum Neck: non-tender, supple Respiratory: clear to auscultation, normal air movement Cardiovascular: nl pulses, regular rate and rhythm Gastrointestinal: nl liver, spleen, non-tender, soft Musculoskeletal: nl extremities to inspection, nl gait and stance Extremities: normal pulses Neurological: 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 intact, nl mental status, nl speech, nl strength Skin: nl turgor, No rash or lesions Lymph: nl lymph nodes Results Result Diagram: 12/15/16 0425 12/15/16 0425 Medications Medications Current Medications Acetaminophen (Tylenol Tab) 500 mg Q4H PRN PO MILD PAIN LEVEL 1-3 Last administered on 12/15/16t 21:58; Admin Dose 500 MG; Start 12/13/16 at 23:00 Lubiprostone 24 mcg 24 mcg DAILY PO Last administered on 12/16/16 08:39; Admin Dose 24 MCG; Start 12/14/16 at 09:00 Sodium Chloride (NS) 1,000 ml @ 50 mls/hr Q20H IV Last administered on 08:39; Admin Dose 50 MLS/HR; Start 12/13/16 at 22:54 Ondansetron HCl (Zofran Inj) 4 mg Q6H PRN IV NAUSEA AND/OR VOMITING; Start at 23:00 Acetaminophen (Tylenol Tab) 650 mg Q6H PRN PO PAIN LEVEL 1-3 OR FEVER; Start at 23:00 Acetaminophen (Tylenol Supp) 650 mg Q6H PRN [place] PAIN LEVEL 1-3 OR FEVER; Start 12/13/16 at 23:00 Morphine Sulfate (morphine) 2 mg Q4H PRN IV SEVERE PAIN LEVEL 7-10; Start 12/13 at 23:00 Docusate Sodium (Colace) 100 mg Q12H PRN PO CONSTIPATION; Start 12/13/16 at 23: 00 Magnesium Hydroxide (Milk Of Mag) 30 ml DAILY PRN PO CONSTIPATION; Start at 23:00 Zolpidem Tartrate (Ambien) 5 mg QHS PRN PO SLEEP; Start 12/13/16 at 23:00 Pantoprazole (Protonix Iv) 40 mg DAILY@06 IV Last administered on 12/16/16 05: 42; Admin Dose 40 MG; Start 12/14/16 at 06:00 Enoxaparin Sodium 30 mg 30 mg DAILY SC Last administered on 12/14/16 09:29; Admin Dose 30 MG; Start 12/14/16 at 09:00; Status Future Hold Ceftriaxone Sodium (Rocephin) 50 ml @ 100 mls/hr Q24H IVPB Last administered on 12/15/16 21:58; Admin Dose 100 MLS/HR; Start 12/14/16 at 22:00 JAMIE VELAZQUEZ MD Dec 16, 2016 11:15
[2016-12-16] MEDS ORDERED: BARIUM SULF 2% 450 ML BTL (BERRY SMOOTHIE) PO ONE (11:30)
[2016-12-16] MEDS ORDERED: IODIXANOL LOCM 100 ML BTL ONE (14:25)
[2016-12-16] MEDS ORDERED: SOD CHLORIDE 0.9% 100 ML ONE (14:25)
[2016-12-16] MEDS ORDERED: IODIXANOL LOCM 50 ML BTL ONE (14:26)
--- NOTE | 2016-12-16 17:33 | PN ---
Date/Time of Note Date/Time of Note DATE: 12/16/16 TIME: 17:32 Assessment/Plan VTE Prophylaxis VTE Prophylaxis Intervention: other Lines/Catheters [facility] [place] [facility] Urinary Cath still in place: No Assessment/Plan Chief Complaint/Hosp Course IMPRESSION The patient has: 1. cholangiocarcinoma status post duodenal stent. The patient's other diagnoses include: 2. Hypokalemia. BETTER 3. Hyponatremia. BETTER 4. Leukocytosis. PLAN PER GI BIOPSY SOON Problems: Subjective 24 Hr Interval Summary Cardiovascular: no complaints Gastrointestinal: pain (+) Exam/Review of Systems Vital Signs Vitals Vital Signs Date Time Temp Pulse Resp B/P Pulse Ox O2 Delivery O2 Flow Rate FiO2 12/16/16 08:29 98.0 82 20 129/61 98 12/13/16 22:48 Room Air Intake and Output 12/15/16 12/15/16 12/16/16 15:00 23:00 07:00 Intake Total 940 ml 910 ml Balance 940 ml 910 ml Exam Neck: supple Respiratory: clear to auscultation Cardiovascular: regular rate and rhythm Gastrointestinal: soft Musculoskeletal: nl extremities to inspection Extremities: normal pulses Results Result Diagram: 12/15/16 0425 12/15/16 0425 Medications Medications Current Medications Acetaminophen (Tylenol Tab) 500 mg Q4H PRN PO MILD PAIN LEVEL 1-3 Last administered on 12/15/16 21:58; Admin Dose 500 MG; Start 12/13/16 at 23:00 Lubiprostone 24 mcg 24 mcg DAILY PO Last administered on 12/16/16 08:39; Admin Dose 24 MCG; Start 12/14/16 at 09:00 Sodium Chloride (NS) 1,000 ml @ 50 mls/hr Q20H IV Last administered on 08:39; Admin Dose 50 MLS/HR; Start 12/13/16 at 22:54 Ondansetron HCl (Zofran Inj) 4 mg Q6H PRN IV NAUSEA AND/OR VOMITING; Start at 23:00 Acetaminophen (Tylenol Tab) 650 mg Q6H PRN PO PAIN LEVEL 1-3 OR FEVER; Start at 23:00 Acetaminophen (Tylenol Supp) 650 mg Q6H PRN [place] PAIN LEVEL 1-3 OR FEVER; Start 12/13/16 at 23:00 Morphine Sulfate (morphine) 2 mg Q4H PRN IV SEVERE PAIN LEVEL 7-10; Start 12/13 at 23:00 Docusate Sodium (Colace) 100 mg Q12H PRN PO CONSTIPATION; Start 12/13/16 at 23: 00 Magnesium Hydroxide (Milk Of Mag) 30 ml DAILY PRN PO CONSTIPATION; Start at 23:00 Zolpidem Tartrate (Ambien) 5 mg QHS PRN PO SLEEP; Start 12/13/16 at 23:00 Pantoprazole (Protonix Iv) 40 mg DAILY@06 IV Last administered on 12/16/16 05: 42; Admin Dose 40 MG; Start 12/14/16 at 06:00 Enoxaparin Sodium 30 mg 30 mg DAILY SC Last administered on 12/14/16 09:29; Admin Dose 30 MG; Start 12/14/16 at 09:00; Status Future Hold Ceftriaxone Sodium (Rocephin) 50 ml @ 100 mls/hr Q24H IVPB Last administered on 12/15/16 21:58; Admin Dose 100 MLS/HR; Start 12/14/16 at 22:00 CATA DUARTE MD Dec 16, 2016 17:33
[2016-12-16 20:09] VITALS: BP 141/60; RESP 19
--- NOTE | 2016-12-16 20:10 | RADRPT ---
PROCEDURE: CT abdomen with contrast. CLINICAL INDICATION: Pancreatic mass TECHNIQUE: CT scan of the abdomen with contrast was performed utilizing the institution's pancreat ic protocol. Coronal and sagittal images were also reformatted. 100 cc Visipaque 320 intravenous c ontrast was administered without complication. Total exam CTDIvol = 28.22 mGy and DLP = 958.48 mGy- cm. COMPARISON: CT 08/19/2016 FINDINGS: Visualized lower thorax: Trace traction bronchiectasis and subpleural scarring of the lower lobes wi thout pulmonary nodules or infiltrates. Linear scarring in the right middle lobe may be from prior surgery. There is no evidence for pleural effusion. Liver, gallbladder, pancreas and spleen: A peripherally enhancing centrally hypodense space occupyi ng lesion with irregular margins in the posterior segment right hepatic dome is new compared to the prior study an estimated at 3.4 x 2.8 cm, the central attenuation approximately 20 HU. A necrotic m etastatic lesion versus hepatic abscess (series 4 image 35). No additional masses are noted, intrah epatic ductal dilatation is decreased compared to prior study but not resolved. Gas is present with in the lumen of the gallbladder and there is gallbladder wall thickening of 6 mm, no calcified galls tones are present. Some stranding of the surrounding gallbladder fat is noted. The common bile benson t stents are again seen, 2 stents are identified in the satisfactory positions. The hypodense anter ior pancreatic head mass that appears to be a sparing of the uncinate process is estimated at 3 x 2. 2 cm (series 6 image 52) with pancreatic duct dilatation of approximately 1 cm again noted. Atrophy of the pancreatic body and tail is again seen. There is concern for partial encasement of t he superior mesenteric vein and near the portal vein confluence, no thrombus is demonstrated however . The spleen is normal, not enlarged. Adrenal glands and genitourinary system: The adrenal glands are normal bilaterally. The kidneys ar e normal in size, contour and attenuation with no evidence for masses, calculi or hydronephrosis. Sm all renal cortical cysts are present bilaterally The visualized ureters are unremarkable. Gastrointestinal system: The stomach is normal in caliber . Gas is present within the lumen of th e stent located in the region of the gastric antrum and proximal duodenum. The small bowel shows no evidence of ileus or obstruction. The appendix is not visualized. Some liquid stool is present wit hin the included colon, the colonic lumen collapsed and equivocal for colitis. Peritoneum, retroperitoneum, vessels and lymph nodes: The abdominal aorta is normal in caliber. Th ere is mild aortic atherosclerotic calcification. Inferior vena cava is normal in caliber. There i s no evidence for adenopathy. The peritoneal cavity is normal with no evidence for ascites. Osseous structures and musculoskeletal system: There is no evidence for acute osseous abnormality o r muscular pathology. Multilevel degenerative spondylosis is present No subcutaneous abnormalities are present. RPTAT:HJJR IMPRESSION: 1. Irregularly marginated peripherally enhancing and centrally hypodense space occupying lesion wit hin the right hepatic lobe measuring 3.4 x 2.8 cm raises concern for intrahepatic abscess, necrotic metastatic foci are possible but believed to be less likely. Consider aspiration/biopsy. 2. Development of gas within the gallbladder lumen with gallbladder wall enhancement, thickening an d mild stranding of the adjacent pericholecystic fat unable to exclude cholecystitis. 3. Size of the pancreatic head mass is slightly larger compared to 08/19/2016 with increased pancre atic duct dilatation. 4. Common bile duct stents are again noted with decrease but incompletely resolved intrahepatic benson jacob dilatation. 5. Gas within the stent of the distal stomach and proximal small bowel indicates patency, no gastri c distension or small bowel obstruction is present. 6. Decompression of bowel wall thickening of the visualized colon raises concern for colitis in the proper clinical setting. Physician Naz Date Time Electronically viewed and signed by Physician Naz on 12/16/2016 20:10 /
[2016-12-16] MEDS: CEFTRIAXONE 2 GM/50 ML (PMX) 50 ML IVPB SCH (21:34)
[2016-12-17 06:00] LABS: POTASSIUM 3.2 mmol/L (3.5-5.1)
[2016-12-17 06:02] LABS: BILIRUBIN,INDIRECT 0.1 mg/dl (0-1.1); CREATININE 0.64 mg/dl (0.44-1.00)
[2016-12-17 06:03] LABS: ALBUMIN/GLOBULIN RATIO 0.5; BILIRUBIN,TOTAL 0.1 mg/dl (0.2-1.3); CALCIUM 7.7 mg/dl (8.4-10.2)
[2016-12-17] MEDS: PANTOPRAZOLE 40 MG INJ IV SCH (06:40)
[2016-12-17 07:00] VITALS: BP 126/60; RESP 20
[2016-12-17] MEDS: SOD CHLORIDE 0.9% 1,000 ML IV SCH (07:04)
[2016-12-17] MEDS: LUBIPROSTONE 24 MCG CAP PO SCH (09:45)
--- NOTE | 2016-12-17 16:42 | CONS ---
Date/Time of Note Date/Time of Note DATE: 12/17/16 TIME: 16:42 Assessment/Plan Assessment/Plan Chief Complaint/Hosp Course IMPRESSION: 1. Profound weakness. 2. Dehydration. 3. Hypokalemia. 4. Hyponatremia. 5. Elevated alkaline phosphatase. 6. Obstructing hilar lesion, status post bilateral stent with good relief from the obstruction. 7. 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 8. Duodenal obstruction status post self-expanding metallic stent. 9. Hypertension. 10. Anorexia. Plan 1. needs pancreatic mass biopsy, Dr. Corona had discussed with Dr. Lamonte Alvares and ordered another CT guided biopsy 2. megace to stimulate appetite 3. onc consult Problems: Consultation Date/Type/Reason Admit Date/Time Dec 15, 2016 at 14:27 Initial Consult Date Type of Consultation: GI 24 HR Interval Summary Free Text/Dictation resting peacefully Exam/Review of Systems Vital Signs Vitals Vital Signs Date Time Temp Pulse Resp B/P Pulse Ox O2 Delivery O2 Flow Rate FiO2 12/17/16 07:00 98.6 85 20 126/60 100 12/13/16 22:48 Room Air Intake and Output 12/16/16 12/16/16 12/17/16 15:00 23:00 07:00 Intake Total 1330 ml 1000 ml Balance 1330 ml 1000 ml Exam Constitutional: alert, oriented, well developed Psych: nl mood/affect, no complaints Head: atraumatic, normocephalic Eyes: EOMI, nl conjunctiva, nl lids, nl sclera ENMT: mucosa pink and moist, nl external ears & nose, nl lips & teeth, nl nasal mucosa & septum Neck: non-tender, supple Respiratory: clear to auscultation, normal air movement Cardiovascular: nl pulses, regular rate and rhythm Gastrointestinal: bowel sounds, tender (epigastric ttp) Results Result Diagram: 12/15/16 0425 12/17/16 0434 Results 24 hrs Laboratory Tests Test 12/17/16 04:34 Alanine Aminotransferase (ALT/SGPT) 28 Albumin 2.0 L Albumin/Globulin Ratio 0.50 Alkaline Phosphatase 870 H Anion Gap 11 Aspartate Amino Transf (AST/SGOT) 24 Blood Urea Nitrogen 9 Calcium Level 7.7 L Carbon Dioxide Level 19 L Chloride Level 107 Creatinine 0.64 Direct Bilirubin 0.00 Globulin 4.00 H Glucose Level 103 Indirect Bilirubin 0.1 Potassium Level 3.2 L Sodium Level 134 L Total Bilirubin 0.1 L Total Protein 6.0 L Medications Medications Current Medications Acetaminophen (Tylenol Tab) 500 mg Q4H PRN PO MILD PAIN LEVEL 1-3 Last administered on 12/15/16 21:58; Admin Dose 500 MG; Start 12/13/16 at 23:00 Lubiprostone 24 mcg 24 mcg DAILY PO Last administered on 12/17/16 09:45; Admin Dose 24 MCG; Start 12/14/16 at 09:00 Sodium Chloride (NS) 1,000 ml @ 50 mls/hr Q20H IV Last administered on 07:04; Admin Dose 50 MLS/HR; Start 12/13/16 at 22:54 Ondansetron HCl (Zofran Inj) 4 mg Q6H PRN IV NAUSEA AND/OR VOMITING; Start at 23:00 Acetaminophen (Tylenol Tab) 650 mg Q6H PRN PO PAIN LEVEL 1-3 OR FEVER; Start at 23:00 Acetaminophen (Tylenol Supp) 650 mg Q6H PRN [place] PAIN LEVEL 1-3 OR FEVER; Start 12/13/16 at 23:00 Morphine Sulfate (morphine) 2 mg Q4H PRN IV SEVERE PAIN LEVEL 7-10; Start 12/13 at 23:00 Docusate Sodium (Colace) 100 mg Q12H PRN PO CONSTIPATION; Start 12/13/16 at 23: 00 Magnesium Hydroxide (Milk Of Mag) 30 ml DAILY PRN PO CONSTIPATION; Start at 23:00 Zolpidem Tartrate (Ambien) 5 mg QHS PRN PO SLEEP; Start 12/13/16 at 23:00 Enoxaparin Sodium 30 mg 30 mg DAILY SC Last administered on 12/14/16 09:29; Admin Dose 30 MG; Start 12/14/16 at 09:00; Status Future Hold Ceftriaxone Sodium (Rocephin) 50 ml @ 100 mls/hr Q24H IVPB Last administered on 12/16/16 21:34; Admin Dose 100 MLS/HR; Start 12/14/16 at 22:00 Pantoprazole (Protonix Tab) 40 mg DAILY@06 PO ; Start 12/18/16 at 06:00 KARL CHRISTIANSON MD Dec 17, 2016 16:42
--- NOTE | 2016-12-17 17:12 | PN ---
Date/Time of Note Date/Time of Note DATE: 12/17/16 TIME: 17:11 Assessment/Plan VTE Prophylaxis VTE Prophylaxis Intervention: other Lines/Catheters IV [facility] ([facility] Peripheral IV Urinary Cath still in place: No Assessment/Plan Chief Complaint/Hosp Course IMPRESSION The patient has: 1. cholangiocarcinoma status post duodenal stent.W METS The patient's other diagnoses include: 2. Hypokalemia. 3. Hyponatremia. BETTER 4. Leukocytosis. PLAN PER GI BIOPSY SOON Problems: Subjective 24 Hr Interval Summary Respiratory: no complaints Cardiovascular: no complaints Gastrointestinal: no complaints Exam/Review of Systems Vital Signs Vitals Vital Signs Date Time Temp Pulse Resp B/P Pulse Ox O2 Delivery O2 Flow Rate FiO2 12/17/16 07:00 98.6 85 20 126/60 100 12/13/16 22:48 Room Air Intake and Output 12/16/16 12/16/16 12/17/16 15:00 23:00 07:00 Intake Total 1330 ml 1000 ml Balance 1330 ml 1000 ml Exam Neck: supple Respiratory: clear to auscultation Cardiovascular: regular rate and rhythm Gastrointestinal: nl liver, spleen, non-tender, soft Results Result Diagram: 12/15/16 0425 12/17/16 0434 Results 24 hrs Laboratory Tests Test 12/17/16 04:34 Alanine Aminotransferase (ALT/SGPT) 28 Albumin 2.0 L Albumin/Globulin Ratio 0.50 Alkaline Phosphatase 870 H Anion Gap 11 Aspartate Amino Transf (AST/SGOT) 24 Blood Urea Nitrogen 9 Calcium Level 7.7 L Carbon Dioxide Level 19 L Chloride Level 107 Creatinine 0.64 Direct Bilirubin 0.00 Globulin 4.00 H Glucose Level 103 Indirect Bilirubin 0.1 Potassium Level 3.2 L Sodium Level 134 L Total Bilirubin 0.1 L Total Protein 6.0 L Medications Medications Current Medications Acetaminophen (Tylenol Tab) 500 mg Q4H PRN PO MILD PAIN LEVEL 1-3 Last administered on 12/15/16 21:58; Admin Dose 500 MG; Start 12/13/16 at 23:00 Lubiprostone 24 mcg 24 mcg DAILY PO Last administered on 12/17/16 09:45; Admin Dose 24 MCG; Start 12/14/16 at 09:00 Sodium Chloride (NS) 1,000 ml @ 50 mls/hr Q20H IV Last administered on 07:04; Admin Dose 50 MLS/HR; Start 12/13/16 at 22:54 Ondansetron HCl (Zofran Inj) 4 mg Q6H PRN IV NAUSEA AND/OR VOMITING; Start at 23:00 Acetaminophen (Tylenol Tab) 650 mg Q6H PRN PO PAIN LEVEL 1-3 OR FEVER; Start at 23:00 Acetaminophen (Tylenol Supp) 650 mg Q6H PRN [place] PAIN LEVEL 1-3 OR FEVER; Start 12/13/16 at 23:00 Morphine Sulfate (morphine) 2 mg Q4H PRN IV SEVERE PAIN LEVEL 7-10; Start 12/13 at 23:00 Docusate Sodium (Colace) 100 mg Q12H PRN PO CONSTIPATION; Start 12/13/16 at 23: 00 Magnesium Hydroxide (Milk Of Mag) 30 ml DAILY PRN PO CONSTIPATION; Start at 23:00 Zolpidem Tartrate (Ambien) 5 mg QHS PRN PO SLEEP; Start 12/13/16 at 23:00 Enoxaparin Sodium 30 mg 30 mg DAILY SC Last administered on 12/14/16 09:29; Admin Dose 30 MG; Start 12/14/16 at 09:00; Status Future Hold Ceftriaxone Sodium (Rocephin) 50 ml @ 100 mls/hr Q24H IVPB Last administered on 12/16/16 21:34; Admin Dose 100 MLS/HR; Start 12/14/16 at 22:00 Pantoprazole (Protonix Tab) 40 mg DAILY@06 PO ; Start 12/18/16 at 06:00 CATA DUARTE MD Dec 17, 2016 17:12
[2016-12-17] MEDS ORDERED: POTASSIUM CHLORIDE 250 ML IVPB ONE (17:30)
[2016-12-17] MEDS: ACETAMINOPHEN 500 MG TAB PO PRN (19:35)
[2016-12-17 21:11] VITALS: BP 131/61; RESP 20
[2016-12-17] MEDS: CEFTRIAXONE 2 GM/50 ML (PMX) 50 ML IVPB SCH (23:29)
[2016-12-18] MEDS: SOD CHLORIDE 0.9% 1,000 ML IV SCH (03:03)
[2016-12-18] MEDS: PANTOPRAZOLE (EC) 40 MG TAB PO SCH (05:17)
[2016-12-18] MEDS: ACETAMINOPHEN 500 MG TAB PO PRN ×2 (05:17→17:42)
[2016-12-18 07:19] LABS: ALBUMIN 1.9 g/dl (3.3-4.9)
[2016-12-18 07:22] LABS: ALBUMIN/GLOBULIN RATIO 0.48; BILIRUBIN,INDIRECT 0.1 mg/dl (0-1.1); BILIRUBIN,TOTAL 0.1 mg/dl (0.2-1.3); CREATININE 0.58 mg/dl (0.44-1.00); TOTAL PROTEIN 5.8 g/dl (6.1-8.1)
[2016-12-18 07:23] LABS: CALCIUM 7.7 mg/dl (8.4-10.2)
[2016-12-18 07:45] VITALS: BP 128/60; RESP 18
[2016-12-18] MEDS: LUBIPROSTONE 24 MCG CAP PO SCH (08:48)
[2016-12-18] MEDS: D5-NS + KCL 20 MEQ 1,000 ML IV SCH (12:34)
[2016-12-18] MEDS ORDERED: POTASSIUM CHLORIDE 250 ML IVPB ONE (13:30)
--- NOTE | 2016-12-18 16:56 | PN ---
Date/Time of Note Date/Time of Note DATE: 12/18/16 TIME: 16:55 Assessment/Plan VTE Prophylaxis VTE Prophylaxis Intervention: other Lines/Catheters IV [facility]ter Type (from [facility]): Peripheral IV Urinary Cath still in place: No Assessment/Plan Chief Complaint/Hosp Course IMPRESSION The patient has: 1. cholangiocarcinoma status post duodenal stent.W METS The patient's other diagnoses include: 2. Hypokalemia. 3. Hyponatremia. BETTER 4. Leukocytosis. PLAN PER GI BIOPSY SOON Problems: Subjective 24 Hr Interval Summary Respiratory: no complaints Cardiovascular: no complaints Gastrointestinal: pain (MILD) Exam/Review of Systems Vital Signs Vitals Vital Signs Date Time Temp Pulse Resp B/P Pulse Ox O2 Delivery O2 Flow Rate FiO2 12/18/16 07:45 98.0 90 18 128/60 98 Intake and Output 12/17/16 12/17/16 12/18/16 15:00 23:00 07:00 Intake Total 100 ml 1350 ml 1450 ml Output Total 560 ml 4 ml Balance 100 ml 790 ml 1446 ml Exam Respiratory: clear to auscultation Cardiovascular: regular rate and rhythm Gastrointestinal: soft Musculoskeletal: nl extremities to inspection Extremities: normal pulses Results Result Diagram: 12/15/16 0425 12/18/16 0420 Results 24 hrs Laboratory Tests Test 12/18/16 04:20 Alanine Aminotransferase (ALT/SGPT) 25 Albumin 1.9 L Albumin/Globulin Ratio 0.48 Alkaline Phosphatase 909 H Anion Gap 11 Aspartate Amino Transf (AST/SGOT) 21 Blood Urea Nitrogen 7 Calcium Level 7.7 L Carbon Dioxide Level 18 L Chloride Level 107 Creatinine 0.58 Direct Bilirubin 0.00 Globulin 3.90 H Glucose Level 95 Indirect Bilirubin 0.1 Potassium Level 3.0 L Sodium Level 133 L Total Bilirubin 0.1 L Total Protein 5.8 L Medications Medications Current Medications Acetaminophen (Tylenol Tab) 500 mg Q4H PRN PO MILD PAIN LEVEL 1-3 Last administered on 12/18/16 05:17; Admin Dose 500 MG; Start 12/13/16 at 23:00 Lubiprostone (Amitiza) 24 mcg DAILY PO Last administered on 12/18/16 08:48; Admin Dose 24 MCG; Start 12/14/16 at 09:00 Ondansetron HCl (Zofran Inj) 4 mg Q6H PRN IV NAUSEA AND/OR VOMITING; Start at 23:00 Acetaminophen (Tylenol Tab) 650 mg Q6H PRN PO PAIN LEVEL 1-3 OR FEVER; Start at 23:00 Acetaminophen (Tylenol Supp) 650 mg Q6H PRN [place] PAIN LEVEL 1-3 OR FEVER; Start 12/13/16 at 23:00 Morphine Sulfate (morphine) 2 mg Q4H PRN IV SEVERE PAIN LEVEL 7-10; Start 12/13 at 23:00 Docusate Sodium (Colace) 100 mg Q12H PRN PO CONSTIPATION; Start 12/13/16 at 23: 00 Magnesium Hydroxide (Milk Of Mag) 30 ml DAILY PRN PO CONSTIPATION; Start at 23:00 Zolpidem Tartrate (Ambien) 5 mg QHS PRN PO SLEEP; Start 12/13/16 at 23:00 Enoxaparin Sodium 30 mg 30 mg DAILY SC Last administered on 12/14/16 09:29; Admin Dose 30 MG; Start 12/14/16 at 09:00; Status Future Hold Ceftriaxone Sodium (Rocephin) 50 ml @ 100 mls/hr Q24H IVPB Last administered on 12/17/16 23:29; Admin Dose 100 MLS/HR; Start 12/14/16 at 22:00 Pantoprazole 40 mg 40 mg DAILY@06 PO Last administered on 12/18/16 05:17; Admin Dose 40 MG; Start 12/18/16 at 06:00 Potassium Chloride 250 ml @ 62.5 mls/hr ONCE ONCE IVPB Last administered on 12:34; Admin Dose 62.5 MLS/HR; Start 12/18/16 at 13:30; Stop 12/18/16 at 17:29 Potassium Chloride/Dextrose/ Sod Cl (D5-NS + KCl 20 Meq) 1,000 ml @ 50 mls/hr Q20H IV Last administered on 12/18/16 12:34; Admin Dose 50 MLS/HR; Start at 12:00 CATA DUARTE MD Dec 18, 2016 16:56
[2016-12-18 19:54] VITALS: BP 112/55; RESP 18
--- NOTE | 2016-12-18 21:48 | CONS ---
Date/Time of Note Date/Time of Note DATE: 12/18/16 TIME: 21:45 Assessment/Plan Assessment/Plan Chief Complaint/Hosp Course IMPRESSION: 1. Profound weakness, Dehydration. 2. Likely cholangioCA vs pancreatic CA: There is obstructing hilar lesion, status post bilateral stent with good relief from the obstruction. There is also extension of the tumor in the pancreatic head. 3. Duodenal obstruction status post self-expanding metallic stent. 4. Anorexia. Plan 1. needs pancreatic mass biopsy, Dr. Corona had discussed with Dr. Lamonte Alvares and ordered another CT guided biopsy 2. megace to stimulate appetite 3. onc consult for further w/u and management of this mass Problems: Consultation Date/Type/Reason Admit Date/Time Dec 15, 2016 at 14:27 Type of Consultation: GI 24 HR Interval Summary Free Text/Dictation mild abdominal pain, reduced appetite Exam/Review of Systems Vital Signs Vitals Vital Signs Date Time Temp Pulse Resp B/P Pulse Ox O2 Delivery O2 Flow Rate FiO2 12/18/16 19:54 98.3 82 18 112/55 98 Intake and Output 12/17/16 12/17/16 12/18/16 15:00 23:00 07:00 Intake Total 100 ml 1350 ml 1450 ml Output Total 560 ml 4 ml Balance 100 ml 790 ml 1446 ml Exam Constitutional: alert, oriented, well developed Psych: nl mood/affect, no complaints Head: atraumatic, normocephalic Eyes: EOMI, nl conjunctiva, nl lids ENMT: nl external ears & nose, nl lips & teeth, nl nasal mucosa & septum Neck: non-tender, supple Respiratory: clear to auscultation, normal air movement Cardiovascular: nl pulses, regular rate and rhythm Gastrointestinal: bowel sounds, soft, tender (diffusely tender) Results Result Diagram: 12/15/16 0425 12/18/16 0420 Results 24 hrs Laboratory Tests Test 12/18/16 04:20 Alanine Aminotransferase (ALT/SGPT) 25 Albumin 1.9 L Albumin/Globulin Ratio 0.48 Alkaline Phosphatase 909 H Anion Gap 11 Aspartate Amino Transf (AST/SGOT) 21 Blood Urea Nitrogen 7 Calcium Level 7.7 L Carbon Dioxide Level 18 L Chloride Level 107 Creatinine 0.58 Direct Bilirubin 0.00 Globulin 3.90 H Glucose Level 95 Indirect Bilirubin 0.1 Potassium Level 3.0 L Sodium Level 133 L Total Bilirubin 0.1 L Total Protein 5.8 L Medications Medications Current Medications Acetaminophen (Tylenol Tab) 500 mg Q4H PRN PO MILD PAIN LEVEL 1-3 Last administered on 12/18/16 17:42; Admin Dose 500 MG; Start 12/13/16 at 23:00 Lubiprostone (Amitiza) 24 mcg DAILY PO Last administered on 12/18/16 08:48; Admin Dose 24 MCG; Start 12/14/16 at 09:00 Ondansetron HCl (Zofran Inj) 4 mg Q6H PRN IV NAUSEA AND/OR VOMITING; Start at 23:00 Acetaminophen (Tylenol Tab) 650 mg Q6H PRN PO PAIN LEVEL 1-3 OR FEVER; Start at 23:00 Acetaminophen (Tylenol Supp) 650 mg Q6H PRN [place] PAIN LEVEL 1-3 OR FEVER; Start 12/13/16 at 23:00 Morphine Sulfate (morphine) 2 mg Q4H PRN IV SEVERE PAIN LEVEL 7-10; Start 12/13 at 23:00 Docusate Sodium (Colace) 100 mg Q12H PRN PO CONSTIPATION; Start 12/13/16 at 23: 00 Magnesium Hydroxide (Milk Of Mag) 30 ml DAILY PRN PO CONSTIPATION; Start at 23:00 Zolpidem Tartrate (Ambien) 5 mg QHS PRN PO SLEEP; Start 12/13/16 at 23:00 Enoxaparin Sodium 30 mg 30 mg DAILY SC Last administered on 12/14/16 09:29; Admin Dose 30 MG; Start 12/14/16 at 09:00; Status Future Hold Ceftriaxone Sodium (Rocephin) 50 ml @ 100 mls/hr Q24H IVPB Last administered on 12/17/16 23:29; Admin Dose 100 MLS/HR; Start 12/14/16 at 22:00 Pantoprazole 40 mg 40 mg DAILY@06 PO Last administered on 12/18/16 05:17; Admin Dose 40 MG; Start 12/18/16 at 06:00 Potassium Chloride/Dextrose/ Sod Cl (D5-NS + KCl 20 Meq) 1,000 ml @ 50 mls/hr Q20H IV Last administered on 12/18/16 12:34; Admin Dose 50 MLS/HR; Start at 12:00 KARL CHRISTIANSON MD Dec 18, 2016 21:48
[2016-12-18] MEDS: CEFTRIAXONE 2 GM/50 ML (PMX) 50 ML IVPB SCH (22:00)
[2016-12-19 05:17] LABS: ADD SCAN DIFF NO
[2016-12-19 05:37] LABS: BASOPHIL # 0.1 10^3/ul (0.0-0.1); BASOPHILS % 0.7 % (0.0-2.0); EOSINOPHILS # 0.3 10^3/ul (0.0-0.5); EOSINOPHILS % 3.3 % (0.0-7.0); HEMATOCRIT 29.2 % (37.0-47.0); HEMOGLOBIN 9.7 g/dl (12.0-16.0); LYMPHOCYTES # 2.1 10^3/ul (0.8-2.9); LYMPHOCYTES % 20.5 % (15.0-51.0); MEAN CORPUSCULAR HEMOGLOBIN 29.4 pg (29.0-33.0); MEAN CORPUSCULAR HGB CONC 33.2 g/dl (32.0-37.0); MEAN CORPUSCULAR VOLUME 88.5 fl (82.0-101.0); MEAN PLATELET VOLUME 9.8 fl (7.4-10.4); MONOCYTE # 1.1 10^3/ul (0.3-0.9); MONOCYTES % 10.1 % (0.0-11.0); NEUTROPHIL # 6.6 10^3/ul (1.6-7.5); PLATELET COUNT 354 10^3/UL (140-415); RED CELL DISTRIBUTION WIDTH 15.5 % (11.5-14.5); WHITE BLOOD COUNT 10.4 10^3/ul (4.8-10.8)
[2016-12-19 05:50] LABS: POTASSIUM 3.9 mmol/L (3.5-5.1)
[2016-12-19 05:53] LABS: CREATININE 0.62 mg/dl (0.44-1.00)
[2016-12-19 05:54] LABS: CALCIUM 7.8 mg/dl (8.4-10.2)
[2016-12-19] MEDS: PANTOPRAZOLE (EC) 40 MG TAB PO SCH (06:53)
[2016-12-19] MEDS: ACETAMINOPHEN 500 MG TAB PO PRN ×2 (06:54→18:26)
[2016-12-19] MEDS: LUBIPROSTONE 24 MCG CAP PO SCH (07:37)
[2016-12-19] MEDS: D5-NS + KCL 20 MEQ 1,000 ML IV SCH ×2 (08:00→19:55)
[2016-12-19 08:38] VITALS: BP 130/67; RESP 18
[2016-12-19 19:59] VITALS: BP 136/69; RESP 18
--- NOTE | 2016-12-19 20:44 | PN ---
Date/Time of Note Date/Time of Note DATE: 12/19/16 TIME: 20:43 Assessment/Plan VTE Prophylaxis VTE Prophylaxis Intervention: other Lines/Catheters IV C[facility]ter Type (from [facility]): Peripheral IV Urinary Cath still in place: No Assessment/Plan Chief Complaint/Hosp Course IMPRESSION The patient has: 1. cholangiocarcinoma status post duodenal stent.W METS The patient's other diagnoses include: 2. Hypokalemia.better 3. Hyponatremia. BETTER 4. Leukocytosis. PLAN PER GI BIOPSY SOON Problems: Subjective 24 Hr Interval Summary Subjective hx not possible: other (d/w dr diallo will do liver biopsy) Gastrointestinal: no complaints Genitourinary: no complaints Exam/Review of Systems Vital Signs Vitals Vital Signs Date Time Temp Pulse Resp B/P Pulse Ox O2 Delivery O2 Flow Rate FiO2 12/19/16 19:59 98.0 84 18 136/69 97 Intake and Output 12/18/16 12/18/16 12/19/16 14:59 22:59 06:59 Intake Total 1100 ml 400 ml Balance 1100 ml 400 ml Exam Respiratory: clear to auscultation Cardiovascular: regular rate and rhythm Gastrointestinal: soft, tender (+) Results Result Diagram: 12/19/16 0420 12/19/16 0420 Results 24 hrs Laboratory Tests Test 12/19/16 04:20 Anion Gap 10 Basophils # 0.1 Basophils % 0.7 Blood Urea Nitrogen 6 L Calcium Level 7.8 L Carbon Dioxide Level 20 L Chloride Level 108 Creatinine 0.62 Eosinophils # 0.3 Eosinophils % 3.3 Glucose Level 117 Hematocrit 29.2 L Hemoglobin 9.7 L Lymphocytes # 2.1 Lymphocytes % 20.5 Mean Corpuscular Hemoglobin 29.4 Mean Corpuscular Hemoglobin Concent 33.2 Mean Corpuscular Volume 88.5 Mean Platelet Volume 9.8 Monocytes # 1.1 H Monocytes % 10.1 Neutrophils # 6.6 Neutrophils % 64.0 Nucleated Red Blood Cells # 0.0 Nucleated Red Blood Cells % 0.0 Platelet Count 354 # Potassium Level 3.9 Red Blood Count 3.30 L Red Cell Distribution Width 15.5 H Sodium Level 134 L White Blood Count 10.4 Medications Medications Current Medications Acetaminophen (Tylenol Tab) 500 mg Q4H PRN PO MILD PAIN LEVEL 1-3 Last administered on 12/19/16t 18:26; Admin Dose 500 MG; Start 12/13/16 at 23:00 Lubiprostone (Amitiza) 24 mcg DAILY PO Last administered on 12/19/16 07:37; Admin Dose 24 MCG; Start 12/14/16 at 09:00 Ondansetron HCl (Zofran Inj) 4 mg Q6H PRN IV NAUSEA AND/OR VOMITING; Start at 23:00 Acetaminophen (Tylenol Tab) 650 mg Q6H PRN PO PAIN LEVEL 1-3 OR FEVER; Start at 23:00 Acetaminophen (Tylenol Supp) 650 mg Q6H PRN [place] PAIN LEVEL 1-3 OR FEVER; Start 12/13/16 at 23:00 Morphine Sulfate (morphine) 2 mg Q4H PRN IV SEVERE PAIN LEVEL 7-10; Start 12/13 at 23:00 Docusate Sodium (Colace) 100 mg Q12H PRN PO CONSTIPATION; Start 12/13/16 at 23: 00 Magnesium Hydroxide (Milk Of Mag) 30 ml DAILY PRN PO CONSTIPATION; Start at 23:00 Zolpidem Tartrate (Ambien) 5 mg QHS PRN PO SLEEP; Start 12/13/16 at 23:00 Enoxaparin Sodium 30 mg 30 mg DAILY SC Last administered on 12/14/16 09:29; Admin Dose 30 MG; Start 12/14/16 at 09:00; Status Future Hold Ceftriaxone Sodium (Rocephin) 50 ml @ 100 mls/hr Q24H IVPB Last administered on 12/18/16 22:00; Admin Dose 100 MLS/HR; Start 12/14/16 at 22:00 Pantoprazole 40 mg 40 mg DAILY@06 PO Last administered on 12/19/16 06:53; Admin Dose 40 MG; Start 12/18/16 at 06:00 Potassium Chloride/Dextrose/ Sod Cl (D5-NS + KCl 20 Meq) 1,000 ml @ 50 mls/hr Q20H IV Last administered on 12/19/16 19:55; Admin Dose 50 MLS/HR; Start at 12:00 CATA DUARTE MD Dec 19, 2016 20:44
--- NOTE | 2016-12-19 21:25 | CONS ---
Date/Time of Note Date/Time of Note DATE: 12/19/16 TIME: 21:22 Assessment/Plan Assessment/Plan Chief Complaint/Hosp Course IMPRESSION: 1. Profound weakness, Dehydration. 2. Likely cholangioCA vs pancreatic CA: There is obstructing hilar lesion, status post bilateral stent with good relief from the obstruction. There is also extension of the tumor in the pancreatic head. 3. Duodenal obstruction status post self-expanding metallic stent. 4. Anorexia. Plan 1. needs pancreatic mass biopsy, Dr. Corona had discussed with Dr. Lamonte Alvares and ordered another CT guided biopsy. However, Dr. Alvares decide not to do biopsy. I will need to call Dr. Alvares to figure out the reason and next steps in management tomorrow. 2. megace to stimulate appetite 3. onc consult for further w/u and management of this mass if Dr. Alvares cannot do biopsy to see if onc can talk to Dr. Alvares or if onc needs tissue diagnosis. Problems: Consultation Date/Type/Reason Admit Date/Time Dec 15, 2016 at 14:27 Type of Consultation: GI 24 HR Interval Summary Free Text/Dictation got a called on my cell that Dr. Alvares will not do biopsy. I was unable to answer as I was in middle of doing a procedure. Exam/Review of Systems Vital Signs Vitals Vital Signs Date Time Temp Pulse Resp B/P Pulse Ox O2 Delivery O2 Flow Rate FiO2 12/19/16 19:59 98.0 84 18 136/69 97 Intake and Output 12/18/16 12/18/16 12/19/16 15:00 23:00 07:00 Intake Total 1100 ml 400 ml Balance 1100 ml 400 ml Exam Constitutional: alert, oriented, well developed Psych: nl mood/affect, no complaints Head: atraumatic, normocephalic Eyes: nl lids ENMT: mucosa pink and moist, nl external ears & nose, nl lips & teeth, nl nasal mucosa & septum Neck: non-tender, supple Respiratory: clear to auscultation, normal air movement Cardiovascular: nl pulses, regular rate and rhythm Gastrointestinal: bowel sounds, soft Results Result Diagram: 12/19/16 0420 12/19/16 0420 Results 24 hrs Laboratory Tests Test 12/19/16 04:20 Anion Gap 10 Basophils # 0.1 Basophils % 0.7 Blood Urea Nitrogen 6 L Calcium Level 7.8 L Carbon Dioxide Level 20 L Chloride Level 108 Creatinine 0.62 Eosinophils # 0.3 Eosinophils % 3.3 Glucose Level 117 Hematocrit 29.2 L Hemoglobin 9.7 L Lymphocytes # 2.1 Lymphocytes % 20.5 Mean Corpuscular Hemoglobin 29.4 Mean Corpuscular Hemoglobin Concent 33.2 Mean Corpuscular Volume 88.5 Mean Platelet Volume 9.8 Monocytes # 1.1 H Monocytes % 10.1 Neutrophils # 6.6 Neutrophils % 64.0 Nucleated Red Blood Cells # 0.0 Nucleated Red Blood Cells % 0.0 Platelet Count 354 # Potassium Level 3.9 Red Blood Count 3.30 L Red Cell Distribution Width 15.5 H Sodium Level 134 L White Blood Count 10.4 Medications Medications Current Medications Acetaminophen (Tylenol Tab) 500 mg Q4H PRN PO MILD PAIN LEVEL 1-3 Last administered on 12/19/16 18:26; Admin Dose 500 MG; Start 12/13/16 at 23:00 Lubiprostone (Amitiza) 24 mcg DAILY PO Last administered on 12/19/16 07:37; Admin Dose 24 MCG; Start 12/14/16 at 09:00 Ondansetron HCl (Zofran Inj) 4 mg Q6H PRN IV NAUSEA AND/OR VOMITING; Start at 23:00 Acetaminophen (Tylenol Tab) 650 mg Q6H PRN PO PAIN LEVEL 1-3 OR FEVER; Start at 23:00 Acetaminophen (Tylenol Supp) 650 mg Q6H PRN [place] PAIN LEVEL 1-3 OR FEVER; Start 12/13/16 at 23:00 Morphine Sulfate (morphine) 2 mg Q4H PRN IV SEVERE PAIN LEVEL 7-10; Start 12/13 at 23:00 Docusate Sodium (Colace) 100 mg Q12H PRN PO CONSTIPATION; Start 12/13/16 at 23: 00 Magnesium Hydroxide (Milk Of Mag) 30 ml DAILY PRN PO CONSTIPATION; Start at 23:00 Zolpidem Tartrate (Ambien) 5 mg QHS PRN PO SLEEP; Start 12/13/16 at 23:00 Enoxaparin Sodium 30 mg 30 mg DAILY SC Last administered on 12/14/16 09:29; Admin Dose 30 MG; Start 12/14/16 at 09:00; Status Future Hold Ceftriaxone Sodium (Rocephin) 50 ml @ 100 mls/hr Q24H IVPB Last administered on 12/18/16 22:00; Admin Dose 100 MLS/HR; Start 12/14/16 at 22:00 Pantoprazole 40 mg 40 mg DAILY@06 PO Last administered on 12/19/16 06:53; Admin Dose 40 MG; Start 12/18/16 at 06:00 Potassium Chloride/Dextrose/ Sod Cl (D5-NS + KCl 20 Meq) 1,000 ml @ 50 mls/hr Q20H IV Last administered on 12/19/16 19:55; Admin Dose 50 MLS/HR; Start at 12:00 KARL CHRISTIANSON MD Dec 19, 2016 21:25
[2016-12-19] MEDS: CEFTRIAXONE 2 GM/50 ML (PMX) 50 ML IVPB SCH (21:33)
[2016-12-20] VITALS (8 sets, daily range): BP systolic 114–150; BP diastolic 55–70; PULSE 87–96; RESP 18–22
[2016-12-20] MEDS: PANTOPRAZOLE (EC) 40 MG TAB PO SCH (06:10)
[2016-12-20] MEDS: ACETAMINOPHEN 325 MG TAB PO PRN (06:10)
[2016-12-20] MEDS ORDERED: LIDOCAINE 1% (MDV) 20 ML INJ ONE (08:33)
[2016-12-20] MEDS ORDERED: FENTAnyl 50 MCG/ML VIAL ONE (08:33)
[2016-12-20] MEDS ORDERED: MIDAZOLAM 1 MG/ML 2 ML INJ ONE (08:33)
[2016-12-20] MEDS ORDERED: DIPHENHYDRAMINE 50 MG INJ ONE (08:33)
[2016-12-20] MEDS: LUBIPROSTONE 24 MCG CAP PO SCH (08:40)
--- NOTE | 2016-12-20 14:53 | RADRPT ---
PROCEDURE: CT guided liver biopsy. CLINICAL INDICATION: Liver mass. History of cholangiocarcinoma. TECHNIQUE: Informed consent was obtained. The procedure, risks, benefits, complications and alternatives were explained to the patient. Risks including bleeding and infection were explained. The patient unders tood and was willing to proceed. A procedural pause was performed. The patient's name, date of [facility] h, and procedure to be performed were verified. One or more of the following dose reduction techni ques were used: Automated exposure control, adjustment of the mA and/or kV according to patient size , use of iterative reconstruction technique. Using local anesthetic, sterile technique and CT guidance, a 20-gauge automated core biopsy needle w as used to biopsy the mass in the right hepatic lobe superiorly. Multiple passes were made. [place] te tissue was obtained according to the pathologist present during the procedure. The needle was re moved. A postprocedural scan was performed. A dressing was applied. The patient tolerated procedure well. COMPARISON: None. FINDINGS: Initial images demonstrate the tip of the needle at the edge of the lesion in question. Post biopsy images demonstrate no immediate complication. IMPRESSION: 1. Successful CT guided liver biopsy. RPTAT: QQ .Lamonte Alvares MD, Date Time Electronically viewed and signed by .Lamonte Alvares MD, on 12/20/2016 14:53 .R/
--- NOTE | 2016-12-20 19:29 | CONS ---
Date/Time of Note Date/Time of Note DATE: 12/20/16 TIME: 19:27 Assessment/Plan Assessment/Plan Chief Complaint/Hosp Course IMPRESSION: 1. Profound weakness, Dehydration. 2. Likely cholangioCA vs pancreatic CA: There is obstructing hilar lesion, status post bilateral stent with good relief from the obstruction. There is also extension of the tumor in the pancreatic head. 3. Duodenal obstruction status post self-expanding metallic stent. 4. Anorexia. Plan 1. f/u liver biopsy results. 2. megace to stimulate appetite 3. recommend obtaining oncology consult for further w/u and management of this mass. Problems: Consultation Date/Type/Reason Admit Date/Time Dec 15, 2016 at 14:27 Type of Consultation: GI 24 HR Interval Summary Free Text/Dictation s/p liver biopsy today, resting comfortably Exam/Review of Systems Vital Signs Vitals Vital Signs Date Time Temp Pulse Resp B/P Pulse Ox O2 Delivery O2 Flow Rate FiO2 12/20/16 11:00 97.8 87 18 125/57 96 Room Air 12/20/16 10:30 2 Intake and Output 12/19/16 12/19/16 12/20/16 15:00 23:00 07:00 Intake Total 1450 ml 300 ml Balance 1450 ml 300 ml Exam Head: atraumatic, normocephalic Eyes: nl lids ENMT: nl external ears & nose, nl lips & teeth, nl nasal mucosa & septum Neck: non-tender, supple Respiratory: clear to auscultation, normal air movement Cardiovascular: nl pulses, regular rate and rhythm Gastrointestinal: bowel sounds, soft Results Result Diagram: 12/19/16 0420 12/19/16 0420 Medications Medications Current Medications Acetaminophen (Tylenol Tab) 500 mg Q4H PRN PO MILD PAIN LEVEL 1-3 Last administered on 12/19/16 18:26; Admin Dose 500 MG; Start 12/13/16 at 23:00 Lubiprostone (Amitiza) 24 mcg DAILY PO Last administered on 12/19/16 07:37; Admin Dose 24 MCG; Start 12/14/16 at 09:00 Ondansetron HCl (Zofran Inj) 4 mg Q6H PRN IV NAUSEA AND/OR VOMITING; Start at 23:00 Acetaminophen (Tylenol Tab) 650 mg Q6H PRN PO PAIN LEVEL 1-3 OR FEVER Last administered on 12/20/16 06:10; Admin Dose 650 MG; Start 12/13/16 at 23:00 Acetaminophen (Tylenol Supp) 650 mg Q6H PRN [place] PAIN LEVEL 1-3 OR FEVER; Start 12/13/16 at 23:00 Morphine Sulfate (morphine) 2 mg Q4H PRN IV SEVERE PAIN LEVEL 7-10; Start 12/13 at 23:00 Docusate Sodium (Colace) 100 mg Q12H PRN PO CONSTIPATION; Start 12/13/16 at 23: 00 Magnesium Hydroxide (Milk Of Mag) 30 ml DAILY PRN PO CONSTIPATION; Start at 23:00 Zolpidem Tartrate (Ambien) 5 mg QHS PRN PO SLEEP; Start 12/13/16 at 23:00 Enoxaparin Sodium 30 mg 30 mg DAILY SC Last administered on 12/14/16 09:29; Admin Dose 30 MG; Start 12/14/16 at 09:00; Status Future Hold Ceftriaxone Sodium (Rocephin) 50 ml @ 100 mls/hr Q24H IVPB Last administered on 12/19/16 21:33; Admin Dose 100 MLS/HR; Start 12/14/16 at 22:00 Pantoprazole 40 mg 40 mg DAILY@06 PO Last administered on 12/20/16 06:10; Admin Dose 40 MG; Start 12/18/16 at 06:00 Potassium Chloride/Dextrose/ Sod Cl (D5-NS + KCl 20 Meq) 1,000 ml @ 50 mls/hr Q20H IV Last administered on 12/19/16 19:55; Admin Dose 50 MLS/HR; Start at 12:00 KARL CHRISTIANSON MD Dec 20, 2016 19:29
--- NOTE | 2016-12-20 20:32 | PN ---
Date/Time of Note Date/Time of Note DATE: 12/20/16 TIME: 20:31 Assessment/Plan VTE Prophylaxis VTE Prophylaxis Intervention: other Lines/Catheters IV Catheter Type (from [facility]): Peripheral IV Urinary Cath still in place: No Assessment/Plan Chief Complaint/Hosp Course IMPRESSION The patient has: 1. cholangiocarcinoma status post duodenal stent.W METS The patient's other diagnoses include: 2. Hypokalemia.better 3. Hyponatremia. BETTER 4. Leukocytosis. PLAN PER GI BIOPSY done Problems: Subjective 24 Hr Interval Summary Subjective hx not possible: other (s/p liver biopsy) Exam/Review of Systems Vital Signs Vitals Vital Signs Date Time Temp Pulse Resp B/P Pulse Ox O2 Delivery O2 Flow Rate FiO2 12/20/16 19:49 98.1 92 18 150/70 98 Room Air 12/20/16 10:30 2 Intake and Output 12/19/16 12/19/16 12/20/16 15:00 23:00 07:00 Intake Total 1450 ml 300 ml Balance 1450 ml 300 ml Exam Respiratory: clear to auscultation Cardiovascular: regular rate and rhythm Gastrointestinal: soft, tender (+) Extremities: edema (+) Results Result Diagram: 12/19/16 0420 12/19/16 0420 Medications Medications Current Medications Acetaminophen (Tylenol Tab) 500 mg Q4H PRN PO MILD PAIN LEVEL 1-3 Last administered on 12/19/16 18:26; Admin Dose 500 MG; Start 12/13/16 at 23:00 Lubiprostone (Amitiza) 24 mcg DAILY PO Last administered on 12/19/16 07:37; Admin Dose 24 MCG; Start 12/14/16 at 09:00 Ondansetron HCl (Zofran Inj) 4 mg Q6H PRN IV NAUSEA AND/OR VOMITING; Start at 23:00 Acetaminophen (Tylenol Tab) 650 mg Q6H PRN PO PAIN LEVEL 1-3 OR FEVER Last administered on 12/20/16 06:10; Admin Dose 650 MG; Start 12/13/16 at 23:00 Acetaminophen (Tylenol Supp) 650 mg Q6H PRN [place] PAIN LEVEL 1-3 OR FEVER; Start 12/13/16 at 23:00 Morphine Sulfate (morphine) 2 mg Q4H PRN IV SEVERE PAIN LEVEL 7-10 Last administered on 12/20/16 19:51; Admin Dose 2 MG; Start 12/13/16 at 23:00 Docusate Sodium (Colace) 100 mg Q12H PRN PO CONSTIPATION; Start 12/13/16 at 23: 00 Magnesium Hydroxide (Milk Of Mag) 30 ml DAILY PRN PO CONSTIPATION; Start at 23:00 Zolpidem Tartrate (Ambien) 5 mg QHS PRN PO SLEEP; Start 12/13/16 at 23:00 Enoxaparin Sodium 30 mg 30 mg DAILY SC Last administered on 12/14/16 09:29; Admin Dose 30 MG; Start 12/14/16 at 09:00; Status Future Hold Ceftriaxone Sodium (Rocephin) 50 ml @ 100 mls/hr Q24H IVPB Last administered on 12/19/16 21:33; Admin Dose 100 MLS/HR; Start 12/14/16 at 22:00 Pantoprazole 40 mg 40 mg DAILY@06 PO Last administered on 12/20/16 06:10; Admin Dose 40 MG; Start 12/18/16 at 06:00 Potassium Chloride/Dextrose/ Sod Cl (D5-NS + KCl 20 Meq) 1,000 ml @ 50 mls/hr Q20H IV Last administered on 12/19/16 19:55; Admin Dose 50 MLS/HR; Start at 12:00 CATA DUARTE MD Dec 20, 2016 20:32
[2016-12-20] MEDS: CEFTRIAXONE 2 GM/50 ML (PMX) 50 ML IVPB SCH (21:34)
[2016-12-20] MEDS: D5-NS + KCL 20 MEQ 1,000 ML IV SCH (23:33)
[2016-12-21] MEDS: ACETAMINOPHEN 325 MG TAB PO PRN ×2 (05:34→17:48)
[2016-12-21] MEDS: PANTOPRAZOLE (EC) 40 MG TAB PO SCH (05:34)
[2016-12-21 05:42] LABS: ADD SCAN DIFF NO
[2016-12-21 05:51] LABS: BASOPHIL # 0.1 10^3/ul (0.0-0.1); BASOPHILS % 0.5 % (0.0-2.0); EOSINOPHILS # 0.3 10^3/ul (0.0-0.5); EOSINOPHILS % 2.7 % (0.0-7.0); HEMOGLOBIN 10.8 g/dl (12.0-16.0); LYMPHOCYTES # 2.3 10^3/ul (0.8-2.9); LYMPHOCYTES % 20.9 % (15.0-51.0); MEAN CORPUSCULAR HEMOGLOBIN 30.3 pg (29.0-33.0); MEAN CORPUSCULAR HGB CONC 33.8 g/dl (32.0-37.0); MEAN CORPUSCULAR VOLUME 89.9 fl (82.0-101.0); MEAN PLATELET VOLUME 9.9 fl (7.4-10.4); MONOCYTES % 8.9 % (0.0-11.0); NEUTROPHIL # 7.4 10^3/ul (1.6-7.5); NEUTROPHILS % 66.1 % (39.0-77.0); PLATELET COUNT 398 10^3/UL (140-415); RED BLOOD COUNT 3.56 10^6/ul (4.20-5.40); RED CELL DISTRIBUTION WIDTH 15.8 % (11.5-14.5); WHITE BLOOD COUNT 11.1 10^3/ul (4.8-10.8)
[2016-12-21 06:33] LABS: ALBUMIN 2.2 g/dl (3.3-4.9)
[2016-12-21 06:34] LABS: POTASSIUM 4.6 mmol/L (3.5-5.1)
[2016-12-21 06:36] LABS: ALBUMIN/GLOBULIN RATIO 0.45; BILIRUBIN,INDIRECT 0.3 mg/dl (0-1.1); BILIRUBIN,TOTAL 0.3 mg/dl (0.2-1.3); CREATININE 0.61 mg/dl (0.44-1.00)
[2016-12-21 08:22] VITALS: BP 139/66; RESP 18
[2016-12-21] MEDS: LUBIPROSTONE 24 MCG CAP PO SCH (09:01)
[2016-12-21] MEDS: D5-NS + KCL 20 MEQ 1,000 ML IV SCH (17:50)
--- NOTE | 2016-12-21 18:44 | CONS ---
Date/Time of Note Date/Time of Note DATE: 12/21/16 TIME: 18:41 Assessment/Plan Assessment/Plan Chief Complaint/Hosp Course IMPRESSION: 1. Profound weakness, Dehydration. 2. Likely cholangioCA vs pancreatic CA vs liver cancer vs abscess: IR biopsy of liver lesion did not show infection or neoplasm. 3. Duodenal obstruction status post self-expanding metallic stent. 4. Anorexia. Plan 1. megace to stimulate appetite 2. the normal IR biopsy likely sampling error. At this time we still do not have tissue diagnosis. I communicated to Dr. Mehta regarding surgery to see if surgical laparoscopic biopsy of the mass can be done for tissue diagnosis. 3. recommend obtaining oncology consult for further w/u and management of this mass. Problems: Consultation Date/Type/Reason Admit Date/Time Dec 15, 2016 at 14:27 Type of Consultation: GI 24 HR Interval Summary Free Text/Dictation depressed, + diffuse abdominal pain, doesn't want to talk much today due to fatigue Exam/Review of Systems Vital Signs Vitals Vital Signs Date Time Temp Pulse Resp B/P Pulse Ox O2 Delivery O2 Flow Rate FiO2 12/21/16 08:22 98.3 92 18 139/66 97 12/20/16 21:01 Nasal Cannula 2 Intake and Output 12/20/16 12/20/16 12/21/16 14:59 22:59 06:59 Intake Total 1130 ml 1050 ml Output Total 900 ml Balance 1130 ml 150 ml Exam Psych: depression Head: atraumatic, normocephalic Eyes: EOMI, nl conjunctiva, nl lids, nl sclera ENMT: mucosa pink and moist, nl external ears & nose, nl lips & teeth, nl nasal mucosa & septum Neck: non-tender, supple Respiratory: clear to auscultation, normal air movement Cardiovascular: nl pulses, regular rate and rhythm Gastrointestinal: bowel sounds, soft, tender (diffusely tender) Results Result Diagram: 12/21/16 0430 12/21/16 0430 Results 24 hrs Laboratory Tests Test 12/21/16 04:30 Alanine Aminotransferase (ALT/SGPT) 21 Albumin 2.2 L Albumin/Globulin Ratio 0.45 Alkaline Phosphatase 1122 H Anion Gap 16 Aspartate Amino Transf (AST/SGOT) 31 Basophils # 0.1 Basophils % 0.5 Blood Urea Nitrogen 5 L Calcium Level 8.0 L Carbon Dioxide Level 19 L Chloride Level 105 Creatinine 0.61 Direct Bilirubin 0.00 Eosinophils # 0.3 Eosinophils % 2.7 Globulin 4.80 H Glucose Level 178 Hematocrit 32.0 L Hemoglobin 10.8 L Indirect Bilirubin 0.3 Lymphocytes # 2.3 Lymphocytes % 20.9 Mean Corpuscular Hemoglobin 30.3 Mean Corpuscular Hemoglobin Concent 33.8 Mean Corpuscular Volume 89.9 Mean Platelet Volume 9.9 Monocytes # 1.0 H Monocytes % 8.9 Neutrophils # 7.4 Neutrophils % 66.1 Nucleated Red Blood Cells # 0.0 Nucleated Red Blood Cells % 0.0 Platelet Count 398 Potassium Level 4.6 Red Blood Count 3.56 L Red Cell Distribution Width 15.8 H Sodium Level 135 Total Bilirubin 0.3 Total Protein 7.0 White Blood Count 11.1 H Medications Medications Current Medications Acetaminophen (Tylenol Tab) 500 mg Q4H PRN PO MILD PAIN LEVEL 1-3 Last administered on 12/19/16 18:26; Admin Dose 500 MG; Start 12/13/16 at 23:00 Lubiprostone (Amitiza) 24 mcg DAILY PO Last administered on 12/21/16 09:01; Admin Dose 24 MCG; Start 12/14/16 at 09:00 Ondansetron HCl (Zofran Inj) 4 mg Q6H PRN IV NAUSEA AND/OR VOMITING; Start at 23:00 Acetaminophen (Tylenol Tab) 650 mg Q6H PRN PO PAIN LEVEL 1-3 OR FEVER Last administered on 12/21/16 17:48; Admin Dose 650 MG; Start 12/13/16 at 23:00 Acetaminophen (Tylenol Supp) 650 mg Q6H PRN [place] PAIN LEVEL 1-3 OR FEVER; Start 12/13/16 at 23:00 Morphine Sulfate (morphine) 2 mg Q4H PRN IV SEVERE PAIN LEVEL 7-10 Last administered on 12/20/16 19:51; Admin Dose 2 MG; Start 12/13/16 at 23:00 Docusate Sodium (Colace) 100 mg Q12H PRN PO CONSTIPATION; Start 12/13/16 at 23: 00 Magnesium Hydroxide (Milk Of Mag) 30 ml DAILY PRN PO CONSTIPATION; Start at 23:00 Zolpidem Tartrate (Ambien) 5 mg QHS PRN PO SLEEP; Start 12/13/16 at 23:00 Enoxaparin Sodium 30 mg 30 mg DAILY SC Last administered on 12/14/16 09:29; Admin Dose 30 MG; Start 12/14/16 at 09:00; Status Future Hold Ceftriaxone Sodium (Rocephin) 50 ml @ 100 mls/hr Q24H IVPB Last administered on 12/20/16 21:34; Admin Dose 100 MLS/HR; Start 12/14/16 at 22:00 Pantoprazole 40 mg 40 mg DAILY@06 PO Last administered on 12/21/16 05:34; Admin Dose 40 MG; Start 12/18/16 at 06:00 Potassium Chloride/Dextrose/ Sod Cl (D5-NS + KCl 20 Meq) 1,000 ml @ 50 mls/hr Q20H IV Last administered on 12/21/16 17:50; Admin Dose 50 MLS/HR; Start at 12:00 KARL CHRISTIANSON MD Dec 21, 2016 18:44
--- NOTE | 2016-12-21 19:53 | PN ---
Date/Time of Note Date/Time of Note DATE: 12/21/16 TIME: 19:51 Assessment/Plan VTE Prophylaxis VTE Prophylaxis Intervention: other Lines/Catheters IV C[facility]ter Type (from [facility] Peripheral IV Urinary Cath still in place: No Assessment/Plan Chief Complaint/Hosp Course IMPRESSION The patient has: 1. cholangiocarcinoma status post duodenal stent.W METS The patient's other diagnoses include: 2. Hypokalemia.better 3. Hyponatremia. BETTER 4. Leukocytosis. PLAN PER GI Problems: Subjective 24 Hr Interval Summary Cardiovascular: no complaints Gastrointestinal: decreased appetite Exam/Review of Systems Vital Signs Vitals Vital Signs Date Time Temp Pulse Resp B/P Pulse Ox O2 Delivery O2 Flow Rate FiO2 12/21/16 08:22 98.3 92 18 139/66 97 12/20/16 21:01 Nasal Cannula 2 Intake and Output 12/20/16 12/20/16 12/21/16 15:00 23:00 07:00 Intake Total 1130 ml 1050 ml Output Total 900 ml Balance 1130 ml 150 ml Exam Respiratory: clear to auscultation Cardiovascular: regular rate and rhythm Gastrointestinal: soft Musculoskeletal: nl extremities to inspection Results Result Diagram: 12/21/16 0430 12/21/16 0430 Results 24 hrs Laboratory Tests Test 12/21/16 04:30 Alanine Aminotransferase (ALT/SGPT) 21 Albumin 2.2 L Albumin/Globulin Ratio 0.45 Alkaline Phosphatase 1122 H Anion Gap 16 Aspartate Amino Transf (AST/SGOT) 31 Basophils # 0.1 Basophils % 0.5 Blood Urea Nitrogen 5 L Calcium Level 8.0 L Carbon Dioxide Level 19 L Chloride Level 105 Creatinine 0.61 Direct Bilirubin 0.00 Eosinophils # 0.3 Eosinophils % 2.7 Globulin 4.80 H Glucose Level 178 Hematocrit 32.0 L Hemoglobin 10.8 L Indirect Bilirubin 0.3 Lymphocytes # 2.3 Lymphocytes % 20.9 Mean Corpuscular Hemoglobin 30.3 Mean Corpuscular Hemoglobin Concent 33.8 Mean Corpuscular Volume 89.9 Mean Platelet Volume 9.9 Monocytes # 1.0 H Monocytes % 8.9 Neutrophils # 7.4 Neutrophils % 66.1 Nucleated Red Blood Cells # 0.0 Nucleated Red Blood Cells % 0.0 Platelet Count 398 Potassium Level 4.6 Red Blood Count 3.56 L Red Cell Distribution Width 15.8 H Sodium Level 135 Total Bilirubin 0.3 Total Protein 7.0 White Blood Count 11.1 H Medications Medications Current Medications Acetaminophen (Tylenol Tab) 500 mg Q4H PRN PO MILD PAIN LEVEL 1-3 Last administered on 12/19/16 18:26; Admin Dose 500 MG; Start 12/13/16 at 23:00 Lubiprostone (Amitiza) 24 mcg DAILY PO Last administered on 12/21/16 09:01; Admin Dose 24 MCG; Start 12/14/16 at 09:00 Ondansetron HCl (Zofran Inj) 4 mg Q6H PRN IV NAUSEA AND/OR VOMITING; Start at 23:00 Acetaminophen (Tylenol Tab) 650 mg Q6H PRN PO PAIN LEVEL 1-3 OR FEVER Last administered on 12/21/16 17:48; Admin Dose 650 MG; Start 12/13/16 at 23:00 Acetaminophen (Tylenol Supp) 650 mg Q6H PRN [place] PAIN LEVEL 1-3 OR FEVER; Start 12/13/16 at 23:00 Morphine Sulfate (morphine) 2 mg Q4H PRN IV SEVERE PAIN LEVEL 7-10 Last administered on 12/20/16 19:51; Admin Dose 2 MG; Start 12/13/16 at 23:00 Docusate Sodium (Colace) 100 mg Q12H PRN PO CONSTIPATION; Start 12/13/16 at 23: 00 Magnesium Hydroxide (Milk Of Mag) 30 ml DAILY PRN PO CONSTIPATION; Start at 23:00 Zolpidem Tartrate (Ambien) 5 mg QHS PRN PO SLEEP; Start 12/13/16 at 23:00 Enoxaparin Sodium 30 mg 30 mg DAILY SC Last administered on 12/14/16 09:29; Admin Dose 30 MG; Start 12/14/16 at 09:00; Status Future Hold Ceftriaxone Sodium (Rocephin) 50 ml @ 100 mls/hr Q24H IVPB Last administered on 12/20/16 21:34; Admin Dose 100 MLS/HR; Start 12/14/16 at 22:00 Pantoprazole 40 mg 40 mg DAILY@06 PO Last administered on 12/21/16 05:34; Admin Dose 40 MG; Start 12/18/16 at 06:00 Potassium Chloride/Dextrose/ Sod Cl (D5-NS + KCl 20 Meq) 1,000 ml @ 50 mls/hr Q20H IV Last administered on 12/21/16t 17:50; Admin Dose 50 MLS/HR; Start at 12:00 CATA DUARTE MD Dec 21, 2016 19:52
[2016-12-21 20:45] VITALS: BP 130/67; RESP 17
[2016-12-21] MEDS: CEFTRIAXONE 2 GM/50 ML (PMX) 50 ML IVPB SCH (21:51)
[2016-12-22] MEDS: PANTOPRAZOLE (EC) 40 MG TAB PO SCH (06:19)
[2016-12-22] MEDS: ACETAMINOPHEN 500 MG TAB PO PRN (06:19)
[2016-12-22 07:55] VITALS: BP 145/65; RESP 18
[2016-12-22] MEDS: LUBIPROSTONE 24 MCG CAP PO SCH (09:13)
[2016-12-22] MEDS: D5-NS + KCL 20 MEQ 1,000 ML IV SCH (12:47)
[2016-12-22] MEDS: ACETAMINOPHEN 325 MG TAB PO PRN (12:47)
--- NOTE | 2016-12-22 17:01 | PN ---
Date/Time of Note Date/Time of Note DATE: 12/22/16 TIME: 17:00 Assessment/Plan VTE Prophylaxis VTE Prophylaxis Intervention: other Lines/Catheters IV Catheter Type (from Nrs): Peripheral IV Urinary Cath still in place: No Assessment/Plan Chief Complaint/Hosp Course IMPRESSION The patient has: 1. cholangiocarcinoma status post duodenal stent.W METS The patient's other diagnoses include: 2. Hypokalemia.better 3. Hyponatremia. BETTER 4. Leukocytosis. PLAN PER GI dr dc to see called Problems: Subjective 24 Hr Interval Summary Gastrointestinal: pain (+) Exam/Review of Systems Vital Signs Vitals Vital Signs Date Time Temp Pulse Resp B/P Pulse Ox O2 Delivery O2 Flow Rate FiO2 12/22/16 07:55 97.9 98 18 145/65 96 12/20/16 21:01 Nasal Cannula 2 Intake and Output 12/21/16 12/21/16 12/22/16 15:00 23:00 07:00 Intake Total 1250 ml 650 ml Balance 1250 ml 650 ml Exam Respiratory: clear to auscultation Cardiovascular: regular rate and rhythm Gastrointestinal: bowel sounds (+) Results Result Diagram: 12/21/16 0430 12/21/16 043 Medications Medications Current Medications Acetaminophen (Tylenol Tab) 500 mg Q4H PRN PO MILD PAIN LEVEL 1-3 Last administered on 12/22/16 06:19; Admin Dose 500 MG; Start 12/13/16 at 23:00 Lubiprostone (Amitiza) 24 mcg DAILY PO Last administered on 12/22/16 09:13; Admin Dose 24 MCG; Start 12/14/16 at 09:00 Ondansetron HCl (Zofran Inj) 4 mg Q6H PRN IV NAUSEA AND/OR VOMITING; Start at 23:00 Acetaminophen (Tylenol Tab) 650 mg Q6H PRN PO PAIN LEVEL 1-3 OR FEVER Last administered on 12/22/16 12:47; Admin Dose 650 MG; Start 12/13/16 at 23:00 Acetaminophen (Tylenol Supp) 650 mg Q6H PRN [place] PAIN LEVEL 1-3 OR FEVER; Start 12/13/16 at 23:00 Morphine Sulfate (morphine) 2 mg Q4H PRN IV SEVERE PAIN LEVEL 7-10 Last administered on 12/20/16 19:51; Admin Dose 2 MG; Start 12/13/16 at 23:00 Docusate Sodium (Colace) 100 mg Q12H PRN PO CONSTIPATION; Start 12/13/16 at 23: 00 Magnesium Hydroxide (Milk Of Mag) 30 ml DAILY PRN PO CONSTIPATION; Start at 23:00 Zolpidem Tartrate (Ambien) 5 mg QHS PRN PO SLEEP; Start 12/13/16 at 23:00 Enoxaparin Sodium 30 mg 30 mg DAILY SC Last administered on 12/14/16 09:29; Admin Dose 30 MG; Start 12/14/16 at 09:00; Status Future Hold Ceftriaxone Sodium (Rocephin) 50 ml @ 100 mls/hr Q24H IVPB Last administered on 12/21/16 21:51; Admin Dose 100 MLS/HR; Start 12/14/16 at 22:00 Pantoprazole 40 mg 40 mg DAILY@06 PO Last administered on 12/22/16 06:19; Admin Dose 40 MG; Start 12/18/16 at 06:00 Potassium Chloride/Dextrose/ Sod Cl (D5-NS + KCl 20 Meq) 1,000 ml @ 50 mls/hr Q20H IV Last administered on 12/22/16 12:47; Admin Dose 50 MLS/HR; Start at 12:00 CATA DUARTE MD Dec 22, 2016 17:01
[2016-12-22 19:51] VITALS: BP 160/70; RESP 20
--- NOTE | 2016-12-22 21:36 | CONS ---
Date/Time of Note Date/Time of Note DATE: 12/22/16 TIME: 21:36 Assessment/Plan Assessment/Plan Chief Complaint/Hosp Course IMPRESSION: 1. Profound weakness, Dehydration. 2. Likely cholangioCA vs pancreatic CA vs liver cancer vs abscess: IR biopsy of liver lesion did not show infection or neoplasm. 3. Duodenal obstruction status post self-expanding metallic stent. 4. Anorexia. Plan 1. megace to stimulate appetite 2. the normal IR biopsy likely sampling error. At this time we still do not have tissue diagnosis. I communicated to Dr. Mehta regarding surgery to see if surgical laparoscopic biopsy of the mass can be done for tissue diagnosis. 3. recommend obtaining oncology consult for further w/u and management of this mass. Problems: Consultation Date/Type/Reason Admit Date/Time Dec 15, 2016 at 14:27 Type of Consultation: GI 24 HR Interval Summary Free Text/Dictation still has abdominal pain, Dr. Marquez consulted for possible surgical biopsy for tissue diagnosis Exam/Review of Systems Vital Signs Vitals Vital Signs Date Time Temp Pulse Resp B/P Pulse Ox O2 Delivery O2 Flow Rate FiO2 12/22/16 19:51 98.1 95 20 160/70 98 12/20/16 21:01 Nasal Cannula 2 Intake and Output 12/21/16 12/21/16 12/22/16 15:00 23:00 07:00 Intake Total 1250 ml 650 ml Balance 1250 ml 650 ml Exam Constitutional: alert, oriented, well developed Psych: nl mood/affect, no complaints Head: atraumatic, normocephalic Eyes: EOMI, nl conjunctiva, nl lids, nl sclera ENMT: mucosa pink and moist, nl external ears & nose, nl lips & teeth, nl nasal mucosa & septum Neck: non-tender, supple Respiratory: clear to auscultation, normal air movement Cardiovascular: nl pulses, regular rate and rhythm Gastrointestinal: bowel sounds, non-tender, soft Results Result Diagram: 12/21/1642912/21/16429 Medications Medications Current Medications Acetaminophen (Tylenol Tab) 500 mg Q4H PRN PO MILD PAIN LEVEL 1-3 Last administered on 12/22/16 06:19; Admin Dose 500 MG; Start 12/13/16 at 23:00 Lubiprostone (Amitiza) 24 mcg DAILY PO Last administered on 12/22/16 09:13; Admin Dose 24 MCG; Start 12/14/16 at 09:00 Ondansetron HCl (Zofran Inj) 4 mg Q6H PRN IV NAUSEA AND/OR VOMITING; Start at 23:00 Acetaminophen (Tylenol Tab) 650 mg Q6H PRN PO PAIN LEVEL 1-3 OR FEVER Last administered on 12/22/16 12:47; Admin Dose 650 MG; Start 12/13/16 at 23:00 Acetaminophen (Tylenol Supp) 650 mg Q6H PRN [place] PAIN LEVEL 1-3 OR FEVER; Start 12/13/16 at 23:00 Morphine Sulfate (morphine) 2 mg Q4H PRN IV SEVERE PAIN LEVEL 7-10 Last administered on 12/20/16 19:51; Admin Dose 2 MG; Start 12/13/16 at 23:00 Docusate Sodium (Colace) 100 mg Q12H PRN PO CONSTIPATION; Start 12/13/16 at 23: 00 Magnesium Hydroxide (Milk Of Mag) 30 ml DAILY PRN PO CONSTIPATION; Start at 23:00 Zolpidem Tartrate (Ambien) 5 mg QHS PRN PO SLEEP; Start 12/13/16 at 23:00 Enoxaparin Sodium 30 mg 30 mg DAILY SC Last administered on 12/14/16 09:29; Admin Dose 30 MG; Start 12/14/16 at 09:00; Status Future Hold Ceftriaxone Sodium (Rocephin) 50 ml @ 100 mls/hr Q24H IVPB Last administered on 12/21/16 21:51; Admin Dose 100 MLS/HR; Start 12/14/16 at 22:00 Pantoprazole 40 mg 40 mg DAILY@06 PO Last administered on 12/22/16 06:19; Admin Dose 40 MG; Start 12/18/16 at 06:00 Potassium Chloride/Dextrose/ Sod Cl (D5-NS + KCl 20 Meq) 1,000 ml @ 50 mls/hr Q20H IV Last administered on 12/22/16 12:47; Admin Dose 50 MLS/HR; Start at 12:00 KARL CHRISTIANSON MD Dec 22, 2016 21:36
[2016-12-22] MEDS: CEFTRIAXONE 2 GM/50 ML (PMX) 50 ML IVPB SCH (22:12)
[2016-12-22 23:00] VITALS: BP 142/68; PULSE 88
--- NOTE | 2016-12-23 00:13 | CONS ---
CONSULTATION: [facility] and subsequent inpatient consultation note. PLACE OF SERVICE: [facility] 4th floor DATE OF CONSULTATION: 12/22/2016 IMPRESSION AND PLAN: A very pleasant but unfortunate 71-year-old lady with multiple comorbid issues including previous BMI of 32 as well as a few other medical issues, but mainly with sudden onset for the most part painless jaundice which could not be explained by choledocholithiasis. There was significant narrowing of the bile duct at the hilum of slightly below where it required bile duct stenting and eventually there were issues with pancreatic head mass with duodenal obstruction that required duodenal stenting. Initially , we had considered the patient possibly eligible for a radical bile duct resection in combination with perhaps a right hepatectomy but in August she also showed evidence of mass in the head of the pancreas and I do not believe that the patient would be able to survive a combination Whipple and a radical bile duct resection. Our plan at that time was for patient to receive an endoscopic ultrasound with close evaluation of the area of the head of the pancreas with possible biopsy to help further guide the treatment. The patient certainly has represented with worsening symptoms and evidence of progression of disease. Even though the biopsy of segment 6 lesion does not show malignancy I am still very concerned about the possibility of spread of disease. The head of the pancreas mass is also larger and the patient's overall clinical picture has certainly worsened. She is still not a surgical candidate for a major resection. I believe that the best course of action is still endoscopic ultrasound evaluation. I did have a discussion with Dr. Alvares and we reviewed the patient's images in detail and he and I both agree that there are no good targets for percutaneous biopsy other than head of the pancreas which I would like to avoid for now. I discussed this in detail with the patient as well as with Dr. Mehta and the patient appears to understand the above and agrees with the plan. With above assessment, I recommend the followin. Continue management of symptoms. 2. Expedited scheduling for endoscopic ultrasound evaluation with biopsy. 3. Possible need for percutaneous biopsy of the head of the pancreas if endoscopic ultrasound is not available. 4. Consider oncology consultation with discussion of possible treatment without tissue diagnosis. 5. I will continue to follow the patient along with you from periphery, but will communicate with Dr. Corona when he is back regarding EUS with biopsy. Thank you again for allowing us to participate in the care of this very pleasant lady and her wonderful family. If there are any questions, please feel free to call me at area code [phone]. TOTAL VISIT TIME: 45 minutes of which more than half was spent in [id number] discussion with the patient as well as coordination of care between multiple physicians and providers. UPDATED CLINICAL SUMMARY: Patient is a very-pleasant 71-year-old lady with comorbid issues including previous BMI of 32.6 as well as back pain, hypertension, knee pain as well as ovarian cyst diagnosed with a bile duct stricture summer 2016, status post stenting of the common bile duct x2 as well as eventually duodenal stent placement with concerns for cholangiocarcinoma with development of a mass in the head of the pancreas in addition to central hepatic mass process causing obstruction of the central portion of the biliary tree, not eligible for surgical resection and awaiting endoscopic ultrasound biopsy, readmitted to [facility] as her second third admission over the last 6 months to different hospitals for abdominal pain and failure to thrive. COMORBIDITIES: 1. Above-mentioned bile duct stricture concerning for cholangiocarcinoma status post stenting ERCP and duodenal stent placement. 2. Hypertension. 3. Neuropathy. 4. Back pain. 5. Bilateral knee pain. 6. Ovarian cyst. 7. Previous BMI 32.6 summer with most recent BMI 24.15 December 2016. DATE OF ADMISSION: 12/15/2016 HISTORY OF PRESENT ILLNESS: The patient is a very pleasant 71-year-old lady with above-mentioned history whom I was kindly asked to consult and remain involved in the care due to issues with bile duct stricture. The patient herself reports further decrease in appetite and oral intake. She has low energy and abdominal pain, but no significant nausea or vomiting. Since my recommendation in August for the patient to get an endoscopic ultrasound evaluation and biopsy she has not had this procedure as that is what she reports. ALLERGIES: NO KNOWN DRUG ALLERGIES. MEDICATIONS: 1. Tylenol. 2. Amitiza. INPATIENT MEDICATIONS: Carefully listed in the EHR. SOCIAL HISTORY: Patient lives with her family and does not report any smoking, drinking, or intravenous drug use. FAMILY HISTORY: There are no significant pertinent surgical or oncological or medical problems reported in the family. REVIEW OF SYSTEMS: Other than the above-mentioned, there are no other pertinent positives or pertinent negatives in a complete 14-point review of systems. PHYSICAL EXAMINATION: GENERAL: The patient appears to be a very pleasant lady of descent, appearing stated age, lying in bed comfortably and in no acute distress. BMI 24.2. VITAL SIGNS: Temperature 97.9. Blood pressure 140/65. Pulse 98, respiratory rate 18. Pulse oximetry 96 on 2 liters of nasal cannula. HEENT: Normocephalic and atraumatic. Extraocular muscles and hearing are grossly intact bilaterally and symmetrically. Sclerae are nonicteric. Oral cavity is clear; oral mucosa appeared to be pink and moist. Dentition: fair to poor. NECK: Supple. There is no lymphadenopathy or JVD. There is no submental, submandibular or supraclavicular lymphadenopathy. CHEST: Rises symmetrically with each breath; patient is breathing comfortably. There are no audible wheezes, rales or rhonchi on the gross exam. HEART: Pulse is regular and palpable on the right wrist. Capillary refill was normal. Carotid pulses are palpable bilaterally and symmetrically in the neck. EXTREMITIES: Lower extremities contain no pitting edema around the ankles bilaterally and symmetrically. ABDOMEN: Abdomen is soft, nontender and nondistended. There are no peritoneal signs or guarding. No evidence of ascites, organomegaly, caput medusae, engorged subcutaneous veins, or other abnormalities. SKIN: Appears to be pink and feels warm to touch. NEUROLOGIC: Awake, alert, and follows commands appropriately. LABORATORY DATA: White blood cell count 11.1, hemoglobin 10.8, platelets 398. Electrolytes are normal. CO2 19, creatinine 0.61. Total bilirubin 0.3, AST 31 , ALT 21, alkaline phosphatase 1122, albumin 2.2. INR 1.27. Urinalysis is negative. IMAGING: Patient had an abdominal and pelvic CT 12/16/2016 that demonstrated irregular marginated peripherally enhancing and centrally hypodense space occupying lesion within the right hepatic lobe measuring 3.4 x 2.8 cm, raising concern for intrahepatic abscess, necrotic metastatic foci or other pathology. There was gallbladder wall thickening and possible cholecystitis mentioned. The size of the pancreatic head mass was slightly larger compared to August 2016 with increased pancreatic duct dilatation. Common bile duct stents are noted with decreased, but incompletely resolved intrahepatic ductal dilatation. Gas was seen within the stent of the distal stomach and proximal small bowel, indicating patency. There was no gastric distention or bowel obstruction. There was perhaps mild thickening of the colon wall noted as well. Patient underwent a CT-guided needle biopsy of the segment 6 liver lesion on 04/2017, the pathology of which was read as no evidence of malignancy and evidence for steatosis, moderate to severe macrovesicular and microvesicular nature. There was portal fibrosis which was mild and there were bile ductal proliferation and mild acute inflammation. Dictated By: JESSE RIOS/MARILUZ Conf#: [id number] DID#: [id number] MTDD
--- NOTE | 2016-12-23 04:04 | CONS ---
Date/Time of Note Date/Time of Note DATE: 12/23/16 TIME: 03:59 Assessment/Plan Assessment/Plan Chief Complaint/Hosp Course IMPRESSION: 1. Profound weakness, Dehydration. 2. Likely cholangioCA vs pancreatic CA vs liver cancer vs abscess: IR biopsy of liver lesion did not show infection or neoplasm. Dr. Marquez recommended EUS to see if we can obtain tissue diagnosis. 3. Duodenal obstruction status post self-expanding metallic stent. 4. Anorexia. Plan 1. megace to stimulate appetite 2. the normal IR biopsy likely sampling error. At this time we still do not have tissue diagnosis. Surgery recommend EUS. 3. I will check with GI lab later today to see if EUS available at [facility]. If not available, will need to transfer patient to facility that has EUS. 4. recommend obtaining oncology consult for further w/u and management of this mass. Problems: Consultation Date/Type/Reason Admit Date/Time Dec 15, 2016 at 14:27 Type of Consultation: GI 24 HR Interval Summary Free Text/Dictation She has low energy and abdominal pain, but no significant nausea or vomiting. She was seen by Dr. Marquez who recommended EUS for biopsy of the pancreatic head mass. Exam/Review of Systems Vital Signs Vitals Vital Signs Date Time Temp Pulse Resp B/P Pulse Ox O2 Delivery O2 Flow Rate FiO2 12/22/16 19:51 98.1 95 20 160/70 98 12/20/16 21:01 Nasal Cannula 2 Intake and Output 12/22/16 12/22/16 12/23/16 15:00 23:00 07:00 Intake Total 400 ml 1240 ml Balance 400 ml 1240 ml Exam Constitutional: frail Head: atraumatic, normocephalic Eyes: EOMI, nl conjunctiva, nl lids, nl sclera ENMT: mucosa pink and moist, nl external ears & nose, nl lips & teeth, nl nasal mucosa & septum Neck: non-tender, supple Respiratory: clear to auscultation, normal air movement Cardiovascular: nl pulses, regular rate and rhythm Gastrointestinal: bowel sounds, non-tender, soft Results Result Diagram: 12/21/1642912/21/16 043 Medications Medications Current Medications Acetaminophen (Tylenol Tab) 500 mg Q4H PRN PO MILD PAIN LEVEL 1-3 Last administered on 12/22/16t 06:19; Admin Dose 500 MG; Start 12/13/16 at 23:00 Lubiprostone (Amitiza) 24 mcg DAILY PO Last administered on 12/22/16 09:13; Admin Dose 24 MCG; Start 12/14/16 at 09:00 Ondansetron HCl (Zofran Inj) 4 mg Q6H PRN IV NAUSEA AND/OR VOMITING; Start at 23:00 Acetaminophen (Tylenol Tab) 650 mg Q6H PRN PO PAIN LEVEL 1-3 OR FEVER Last administered on 12/22/16 12:47; Admin Dose 650 MG; Start 12/13/16 at 23:00 Acetaminophen (Tylenol Supp) 650 mg Q6H PRN [place] PAIN LEVEL 1-3 OR FEVER; Start 12/13/16 at 23:00 Morphine Sulfate (morphine) 2 mg Q4H PRN IV SEVERE PAIN LEVEL 7-10 Last administered on 12/20/16 19:51; Admin Dose 2 MG; Start 12/13/16 at 23:00 Docusate Sodium (Colace) 100 mg Q12H PRN PO CONSTIPATION; Start 12/13/16 at 23: 00 Magnesium Hydroxide (Milk Of Mag) 30 ml DAILY PRN PO CONSTIPATION; Start at 23:00 Zolpidem Tartrate (Ambien) 5 mg QHS PRN PO SLEEP; Start 12/13/16 at 23:00 Enoxaparin Sodium 30 mg 30 mg DAILY SC Last administered on 12/14/16 09:29; Admin Dose 30 MG; Start 12/14/16 at 09:00; Status Future Hold Ceftriaxone Sodium (Rocephin) 50 ml @ 100 mls/hr Q24H IVPB Last administered on 12/22/16 22:12; Admin Dose 100 MLS/HR; Start 12/14/16 at 22:00 Pantoprazole 40 mg 40 mg DAILY@06 PO Last administered on 12/22/16 06:19; Admin Dose 40 MG; Start 12/18/16 at 06:00 Potassium Chloride/Dextrose/ Sod Cl (D5-NS + KCl 20 Meq) 1,000 ml @ 50 mls/hr Q20H IV Last administered on 12/22/16 12:47; Admin Dose 50 MLS/HR; Start at 12:00 KARL CHRISTIANSON MD Dec 23, 2016 04:04
[2016-12-23] MEDS: PANTOPRAZOLE (EC) 40 MG TAB PO SCH (05:53)
[2016-12-23] MEDS: ACETAMINOPHEN 500 MG TAB PO PRN ×2 (05:55→19:50)
[2016-12-23 07:00] VITALS: BP 141/96; RESP 20
[2016-12-23] MEDS: LUBIPROSTONE 24 MCG CAP PO SCH (08:49)
[2016-12-23] MEDS: D5-NS + KCL 20 MEQ 1,000 ML IV SCH (08:50)
--- NOTE | 2016-12-23 17:53 | PN ---
Date/Time of Note Date/Time of Note DATE: 12/23/16 TIME: 17:52 Assessment/Plan VTE Prophylaxis VTE Prophylaxis Intervention: other Lines/Catheters IV Catheter Type (from Nrs): Peripheral IV Urinary Cath still in place: No Assessment/Plan Chief Complaint/Hosp Course IMPRESSION The patient has: 1. cholangiocarcinoma status post duodenal stent.W METS The patient's other diagnoses include: 2. Hypokalemia.better 3. Hyponatremia. BETTER 4. Leukocytosis. PLAN PER GI ENDOSCOPIC US BY DR COVINGTON Problems: Subjective 24 Hr Interval Summary Gastrointestinal: pain (+) Exam/Review of Systems Vital Signs Vitals Vital Signs Date Time Temp Pulse Resp B/P Pulse Ox O2 Delivery O2 Flow Rate FiO2 12/23/16 07:00 98.6 101 20 141/96 98 12/20/16 21:01 Nasal Cannula 2 Intake and Output 12/22/16 12/22/16 12/23/16 15:00 23:00 07:00 Intake Total 400 ml 1340 ml 1050 ml Balance 400 ml 1340 ml 1050 ml Exam Respiratory: clear to auscultation Cardiovascular: regular rate and rhythm Gastrointestinal: soft Musculoskeletal: nl extremities to inspection Extremities: normal pulses Results Result Diagram: 12/21/16 0430 12/21/16 0430 Medications Medications Current Medications Acetaminophen (Tylenol Tab) 500 mg Q4H PRN PO MILD PAIN LEVEL 1-3 Last administered on 12/23/16 05:55; Admin Dose 500 MG; Start 12/13/16 at 23:00 Lubiprostone (Amitiza) 24 mcg DAILY PO Last administered on 12/22/16 09:13; Admin Dose 24 MCG; Start 12/14/16 at 09:00 Ondansetron HCl (Zofran Inj) 4 mg Q6H PRN IV NAUSEA AND/OR VOMITING; Start at 23:00 Acetaminophen (Tylenol Tab) 650 mg Q6H PRN PO PAIN LEVEL 1-3 OR FEVER Last administered on 12/22/16 12:47; Admin Dose 650 MG; Start 12/13/16 at 23:00 Acetaminophen (Tylenol Supp) 650 mg Q6H PRN [place] PAIN LEVEL 1-3 OR FEVER; Start 12/13/16 at 23:00 Morphine Sulfate (morphine) 2 mg Q4H PRN IV SEVERE PAIN LEVEL 7-10 Last administered on 12/20/16 19:51; Admin Dose 2 MG; Start 12/13/16 at 23:00 Docusate Sodium (Colace) 100 mg Q12H PRN PO CONSTIPATION; Start 12/13/16 at 23: 00 Magnesium Hydroxide (Milk Of Mag) 30 ml DAILY PRN PO CONSTIPATION; Start at 23:00 Zolpidem Tartrate (Ambien) 5 mg QHS PRN PO SLEEP; Start 12/13/16 at 23:00 Enoxaparin Sodium 30 mg 30 mg DAILY SC Last administered on 12/14/16 09:29; Admin Dose 30 MG; Start 12/14/16 at 09:00; Status Future Hold Ceftriaxone Sodium (Rocephin) 50 ml @ 100 mls/hr Q24H IVPB Last administered on 12/22/16 22:12; Admin Dose 100 MLS/HR; Start 12/14/16 at 22:00 Pantoprazole 40 mg 40 mg DAILY@06 PO Last administered on 12/23/16 05:53; Admin Dose 40 MG; Start 12/18/16 at 06:00 Potassium Chloride/Dextrose/ Sod Cl (D5-NS + KCl 20 Meq) 1,000 ml @ 50 mls/hr Q20H IV Last administered on 12/23/16 08:50; Admin Dose 50 MLS/HR; Start at 12:00 CATA DUARTE MD Dec 23, 2016 17:53
[2016-12-23 19:54] VITALS: RESP 19
[2016-12-23 20:10] VITALS: BP 164/79; PULSE 97; RESP 18
[2016-12-23] MEDS: CEFTRIAXONE 2 GM/50 ML (PMX) 50 ML IVPB SCH (22:00)
[2016-12-24] VITALS: BP 134/64; PULSE 78
[2016-12-24] MEDS: PANTOPRAZOLE (EC) 40 MG TAB PO SCH (05:46)
[2016-12-24] MEDS: ACETAMINOPHEN 500 MG TAB PO PRN (05:50)
[2016-12-24] MEDS: D5-NS + KCL 20 MEQ 1,000 ML IV SCH (07:19)
[2016-12-24] MEDS: LUBIPROSTONE 24 MCG CAP PO SCH (07:45)
[2016-12-24 09:37] VITALS: BP 135/64; RESP 20
--- NOTE | 2016-12-24 10:58 | HP ---
Date/Time of Note Date/Time of Note DATE: 12/24/16 TIME: 10:55 Assessment/Plan VTE Prophylaxis VTE Prophylaxis Intervention: ambulation Lines/Catheters IV Catheter Type (from Nrs): Peripheral IV Central line still needed: No Urinary Cath still in place: No Assessment/Plan Chief Complaint/Hosp Course The patient has: 1. cholangiocarcinoma status post duodenal stent with METS 2. Hypokalemia.better 3. Hyponatremia. BETTER 4. Leukocytosis. 5. Decreased mobility Problems: HPI/ROS Admit Date/Time Admit Date/Time Dec 15, 2016 at 14:27 ROS Constitutional: fatigue, no complaints Eyes: no complaints ENT: no complaints Respiratory: no complaints Cardiovascular: no complaints Gastrointestinal: pain (01/23, stabl ewith Tylenol) Genitourinary: no complaints Skin: no complaints Neurologic: no complaints Lymphatic: no complaints Psychological: nl mood/affect, no complaints PMH/Family/Social Social History Smoking Status: Never smoker Exam/Review of Systems Vital Signs Vitals Vital Signs Date Time Temp Pulse Resp B/P Pulse Ox O2 Delivery O2 Flow Rate FiO2 12/24/16 09:37 98.3 98 20 135/64 98 12/23/16 20:10 Room Air 12/20/16 21:01 2 Intake and Output 12/23/16 12/23/16 12/24/16 15:00 23:00 07:00 Intake Total 175 ml 710 ml 1030 ml Balance 175 ml 710 ml 1030 ml Exam Constitutional: alert, oriented, well developed Psych: no complaints Head: normocephalic Eyes: nl conjunctiva ENMT: nl external ears & nose Neck: supple Respiratory: clear to auscultation Cardiovascular: regular rate and rhythm Musculoskeletal: nl extremities to inspection Labs Result Diagram: 12/21/1642912/21/16 043 Medications Medications Current Medications Acetaminophen (Tylenol Tab) 500 mg Q4H PRN PO MILD PAIN LEVEL 1-3 Last administered on 12/24/16 05:50; Admin Dose 500 MG; Start 12/13/16 at 23:00 Lubiprostone (Amitiza) 24 mcg DAILY PO Last administered on 12/22/16 09:13; Admin Dose 24 MCG; Start 12/14/16 at 09:00 Ondansetron HCl (Zofran Inj) 4 mg Q6H PRN IV NAUSEA AND/OR VOMITING; Start at 23:00 Acetaminophen (Tylenol Tab) 650 mg Q6H PRN PO PAIN LEVEL 1-3 OR FEVER Last administered on 12/22/16 12:47; Admin Dose 650 MG; Start 12/13/16 at 23:00 Acetaminophen (Tylenol Supp) 650 mg Q6H PRN [place] PAIN LEVEL 1-3 OR FEVER; Start 12/13/16 at 23:00 Morphine Sulfate (morphine) 2 mg Q4H PRN IV SEVERE PAIN LEVEL 7-10 Last administered on 12/20/16 19:51; Admin Dose 2 MG; Start 12/13/16 at 23:00 Docusate Sodium (Colace) 100 mg Q12H PRN PO CONSTIPATION; Start 12/13/16 at 23: 00 Magnesium Hydroxide (Milk Of Mag) 30 ml DAILY PRN PO CONSTIPATION; Start at 23:00 Zolpidem Tartrate (Ambien) 5 mg QHS PRN PO SLEEP; Start 12/13/16 at 23:00 Enoxaparin Sodium 30 mg 30 mg DAILY SC Last administered on 12/14/16 09:29; Admin Dose 30 MG; Start 12/14/16 at 09:00; Status Future Hold Ceftriaxone Sodium (Rocephin) 50 ml @ 100 mls/hr Q24H IVPB Last administered on 12/23/16 22:00; Admin Dose 100 MLS/HR; Start 12/14/16 at 22:00 Pantoprazole 40 mg 40 mg DAILY@06 PO Last administered on 12/24/16 05:46; Admin Dose 40 MG; Start 12/18/16 at 06:00 Potassium Chloride/Dextrose/ Sod Cl (D5-NS + KCl 20 Meq) 1,000 ml @ 50 mls/hr Q20H IV Last administered on 12/24/16 07:19; Admin Dose 50 MLS/HR; Start at 12:00 BELIA RAND Dec 24, 2016 10:58
--- NOTE | 2016-12-24 15:50 | CONS ---
Date/Time of Note Date/Time of Note DATE: 12/24/16 TIME: 15:39 Assessment/Plan Assessment/Plan Chief Complaint/Hosp Course IMPRESSION: 1. Profound weakness, Dehydration. 2. Likely cholangioCA vs pancreatic CA vs liver cancer vs abscess: IR biopsy of liver lesion did not show infection or neoplasm. Dr. Marquez recommended EUS to see if we can obtain tissue diagnosis. 3. Duodenal obstruction status post self-expanding metallic stent. 4. Anorexia. Plan 1. megace to stimulate appetite 2. There is no EUS capability here at [facility]. I spoke with Dr. Samara Alvarado and he accepts patient to [facility] to do EUS. I communicated this to primary who is Dr. Maximilian Mehta and Dr. Mehta will arrange. 3. recommend obtaining oncology consult for further w/u and management of this mass. Problems: Consultation Date/Type/Reason Admit Date/Time Dec 15, 2016 at 14:27 Type of Consultation: GI 24 HR Interval Summary Free Text/Dictation has fatigue and abdominal pain, not worse and not better Exam/Review of Systems Vital Signs Vitals Vital Signs Date Time Temp Pulse Resp B/P Pulse Ox O2 Delivery O2 Flow Rate FiO2 12/24/16 09:37 98.3 98 20 135/64 98 12/23/16 20:10 Room Air 12/20/16 21:01 2 Intake and Output 12/23/16 12/23/16 12/24/16 15:00 23:00 07:00 Intake Total 175 ml 710 ml 1030 ml Balance 175 ml 710 ml 1030 ml Exam Constitutional: alert, frail, oriented Psych: nl mood/affect, no complaints Head: atraumatic, normocephalic Eyes: EOMI, nl conjunctiva, nl lids, nl sclera ENMT: mucosa pink and moist, nl external ears & nose, nl lips & teeth, nl nasal mucosa & septum Neck: non-tender, supple Respiratory: clear to auscultation, normal air movement Cardiovascular: nl pulses, regular rate and rhythm Gastrointestinal: bowel sounds, non-tender, soft Results Result Diagram: 12/21/16 04312/21/16 043 Medications Medications Current Medications Acetaminophen (Tylenol Tab) 500 mg Q4H PRN PO MILD PAIN LEVEL 1-3 Last administered on 12/24/16t 05:50; Admin Dose 500 MG; Start 12/13/16 at 23:00 Lubiprostone (Amitiza) 24 mcg DAILY PO Last administered on 12/22/16 09:13; Admin Dose 24 MCG; Start 12/14/16 at 09:00 Ondansetron HCl (Zofran Inj) 4 mg Q6H PRN IV NAUSEA AND/OR VOMITING; Start at 23:00 Acetaminophen (Tylenol Tab) 650 mg Q6H PRN PO PAIN LEVEL 1-3 OR FEVER Last administered on 12/22/16 12:47; Admin Dose 650 MG; Start 12/13/16 at 23:00 Acetaminophen (Tylenol Supp) 650 mg Q6H PRN [place] PAIN LEVEL 1-3 OR FEVER; Start 12/13/16 at 23:00 Morphine Sulfate (morphine) 2 mg Q4H PRN IV SEVERE PAIN LEVEL 7-10 Last administered on 12/20/16 19:51; Admin Dose 2 MG; Start 12/13/16 at 23:00 Docusate Sodium (Colace) 100 mg Q12H PRN PO CONSTIPATION; Start 12/13/16 at 23: 00 Magnesium Hydroxide (Milk Of Mag) 30 ml DAILY PRN PO CONSTIPATION; Start at 23:00 Zolpidem Tartrate (Ambien) 5 mg QHS PRN PO SLEEP; Start 12/13/16 at 23:00 Enoxaparin Sodium 30 mg 30 mg DAILY SC Last administered on 12/14/16 09:29; Admin Dose 30 MG; Start 12/14/16 at 09:00; Status Future Hold Ceftriaxone Sodium (Rocephin) 50 ml @ 100 mls/hr Q24H IVPB Last administered on 12/23/16 22:00; Admin Dose 100 MLS/HR; Start 12/14/16 at 22:00 Pantoprazole 40 mg 40 mg DAILY@06 PO Last administered on 12/24/16 05:46; Admin Dose 40 MG; Start 12/18/16 at 06:00 Potassium Chloride/Dextrose/ Sod Cl (D5-NS + KCl 20 Meq) 1,000 ml @ 50 mls/hr Q20H IV Last administered on 12/24/16 07:19; Admin Dose 50 MLS/HR; Start at 12:00 KARL CHRISTIANSON MD Dec 24, 2016 15:50
[2016-12-24] MEDS: ACETAMINOPHEN 325 MG TAB PO PRN (16:51)
[2016-12-24 19:05] VITALS: BP 140/65; RESP 18
[2016-12-24] MEDS: CEFTRIAXONE 2 GM/50 ML (PMX) 50 ML IVPB SCH (23:41)
[2016-12-25] MEDS: D5-NS + KCL 20 MEQ 1,000 ML IV SCH ×2 (04:00→06:21)
[2016-12-25] MEDS: ACETAMINOPHEN 325 MG TAB PO PRN (06:19)
[2016-12-25] MEDS: PANTOPRAZOLE (EC) 40 MG TAB PO SCH (06:19)
[2016-12-25 08:26] VITALS: BP 143/64; RESP 20
[2016-12-25] MEDS: LUBIPROSTONE 24 MCG CAP PO SCH (08:55)
[2016-12-25] MEDS: ACETAMINOPHEN 500 MG TAB PO PRN (15:37)
--- NOTE | 2016-12-25 16:42 | CONS ---
Date/Time of Note Date/Time of Note DATE: 12/25/16 TIME: 16:38 Assessment/Plan Assessment/Plan Chief Complaint/Hosp Course IMPRESSION: 1. Profound weakness, Dehydration. 2. Likely cholangioCA vs pancreatic CA vs liver cancer vs abscess: IR biopsy of liver lesion did not show infection or neoplasm. Dr. Marquez recommended EUS to see if we can obtain tissue diagnosis. 3. Duodenal obstruction status post self-expanding metallic stent. 4. Anorexia. Plan 1. megace to stimulate appetite 2. There is no EUS capability here at [facility]. I spoke with Dr. Samara Alvarado and he accepts patient to [facility] to do EUS. I communicated this to primary who is Dr. Maximilian Mehta and Dr. Mehta will arrange. However it may not be possible. 3. If not possible to transfer to [place] for EUS by Dr. Alvarado, then ok from [facility] to [place] [facility] and f/u with Dr. Corona for out-pt EUS with arrangement by Dr. Corona 4. Dr. Corona to resume care tomorrow. Problems: Consultation Date/Type/Reason Admit Date/Time Dec 15, 2016 at 14:27 Type of Consultation: GI 24 HR Interval Summary Free Text/Dictation mild to moderate abdominal pain, poor appetite, depressed but no suicidal or homocidal ideations. Exam/Review of Systems Vital Signs Vitals Vital Signs Date Time Temp Pulse Resp B/P Pulse Ox O2 Delivery O2 Flow Rate FiO2 12/25/16 08:26 97.8 96 20 143/64 97 12/23/16 20:10 Room Air Intake and Output 12/24/16 12/24/16 12/25/16 15:00 23:00 07:00 Intake Total 220 ml 2009 ml 500 ml Output Total 800 ml Balance 220 ml 2010 ml -300 ml Exam Constitutional: frail Head: atraumatic, normocephalic Eyes: nl lids ENMT: mucosa pink and moist, nl external ears & nose, nl lips & teeth, nl nasal mucosa & septum Neck: non-tender, supple Respiratory: clear to auscultation, normal air movement Cardiovascular: nl pulses, regular rate and rhythm Gastrointestinal: bowel sounds, non-tender, soft Results Result Diagram: 12/21/1642912/21/16 043 Medications Medications Current Medications Acetaminophen (Tylenol Tab) 500 mg Q4H PRN PO MILD PAIN LEVEL 1-3 Last administered on 12/25/16 15:37; Admin Dose 500 MG; Start 12/13/16 at 23:00 Lubiprostone (Amitiza) 24 mcg DAILY PO Last administered on 12/25/16 08:55; Admin Dose 24 MCG; Start 12/14/16 at 09:00 Ondansetron HCl (Zofran Inj) 4 mg Q6H PRN IV NAUSEA AND/OR VOMITING; Start at 23:00 Acetaminophen (Tylenol Tab) 650 mg Q6H PRN PO PAIN LEVEL 1-3 OR FEVER Last administered on 12/25/16 06:19; Admin Dose 650 MG; Start 12/13/16 at 23:00 Acetaminophen (Tylenol Supp) 650 mg Q6H PRN [place] PAIN LEVEL 1-3 OR FEVER; Start 12/13/16 at 23:00 Morphine Sulfate (morphine) 2 mg Q4H PRN IV SEVERE PAIN LEVEL 7-10 Last administered on 12/20/16 19:51; Admin Dose 2 MG; Start 12/13/16 at 23:00 Docusate Sodium (Colace) 100 mg Q12H PRN PO CONSTIPATION; Start 12/13/16 at 23: 00 Magnesium Hydroxide (Milk Of Mag) 30 ml DAILY PRN PO CONSTIPATION; Start at 23:00 Zolpidem Tartrate (Ambien) 5 mg QHS PRN PO SLEEP; Start 12/13/16 at 23:00 Enoxaparin Sodium 30 mg 30 mg DAILY SC Last administered on 12/14/16 09:29; Admin Dose 30 MG; Start 12/14/16 at 09:00; Status Future Hold Ceftriaxone Sodium (Rocephin) 50 ml @ 100 mls/hr Q24H IVPB Last administered on 12/24/16 23:41; Admin Dose 100 MLS/HR; Start 12/14/16 at 22:00 Pantoprazole 40 mg 40 mg DAILY@06 PO Last administered on 12/25/16 06:19; Admin Dose 40 MG; Start 12/18/16 at 06:00 Potassium Chloride/Dextrose/ Sod Cl (D5-NS + KCl 20 Meq) 1,000 ml @ 50 mls/hr Q20H IV Last administered on 12/25/16 06:21; Admin Dose 50 MLS/HR; Start at 12:00 KARL CHRISTIANSON MD Dec 25, 2016 16:42
--- NOTE | 2016-12-25 16:56 | PN ---
Date/Time of Note Date/Time of Note DATE: 12/25/16 TIME: 16:55 Assessment/Plan VTE Prophylaxis VTE Prophylaxis Intervention: other Lines/Catheters IV Catheter Type (from Nrs): Peripheral IV Urinary Cath still in place: No Assessment/Plan Chief Complaint/Hosp Course IMPRESSION The patient has: 1. cholangiocarcinoma status post duodenal stent.W METS The patient's other diagnoses include: 2. Hypokalemia.better 3. Hyponatremia. BETTER 4. Leukocytosis. PLAN PER GI ENDOSCOPIC US BY DR COVINGTON OUT PT [facility] Problems: Subjective 24 Hr Interval Summary Respiratory: no complaints Cardiovascular: no complaints Exam/Review of Systems Vital Signs Vitals Vital Signs Date Time Temp Pulse Resp B/P Pulse Ox O2 Delivery O2 Flow Rate FiO2 12/25/16 08:26 97.8 96 20 143/64 97 12/23/16 20:10 Room Air Intake and Output 12/24/16 12/24/16 12/25/16 15:00 23:00 07:00 Intake Total 220 ml 2010 ml 500 ml Output Total 800 ml Balance 220 ml 2010 ml -300 ml Exam Respiratory: clear to auscultation Cardiovascular: regular rate and rhythm Gastrointestinal: soft Genitourinary - Female: nl external genitalia Musculoskeletal: nl extremities to inspection Results Result Diagram: 12/21/1642912/21/16 043 Medications Medications Current Medications Acetaminophen (Tylenol Tab) 500 mg Q4H PRN PO MILD PAIN LEVEL 1-3 Last administered on 12/25/16 15:37; Admin Dose 500 MG; Start 12/13/16 at 23:00 Lubiprostone (Amitiza) 24 mcg DAILY PO Last administered on 12/25/16 08:55; Admin Dose 24 MCG; Start 12/14/16 at 09:00 Ondansetron HCl (Zofran Inj) 4 mg Q6H PRN IV NAUSEA AND/OR VOMITING; Start at 23:00 Acetaminophen (Tylenol Tab) 650 mg Q6H PRN PO PAIN LEVEL 1-3 OR FEVER Last administered on 12/25/16 06:19; Admin Dose 650 MG; Start 12/13/16 at 23:00 Acetaminophen (Tylenol Supp) 650 mg Q6H PRN [place] PAIN LEVEL 1-3 OR FEVER; Start 12/13/16 at 23:00 Morphine Sulfate (morphine) 2 mg Q4H PRN IV SEVERE PAIN LEVEL 7-10 Last administered on 12/20/16 19:51; Admin Dose 2 MG; Start 12/13/16 at 23:00 Docusate Sodium (Colace) 100 mg Q12H PRN PO CONSTIPATION; Start 12/13/16 at 23: 00 Magnesium Hydroxide (Milk Of Mag) 30 ml DAILY PRN PO CONSTIPATION; Start at 23:00 Zolpidem Tartrate (Ambien) 5 mg QHS PRN PO SLEEP; Start 12/13/16 at 23:00 Enoxaparin Sodium 30 mg 30 mg DAILY SC Last administered on 12/14/16 09:29; Admin Dose 30 MG; Start 12/14/16 at 09:00; Status Future Hold Ceftriaxone Sodium (Rocephin) 50 ml @ 100 mls/hr Q24H IVPB Last administered on 12/24/16 23:41; Admin Dose 100 MLS/HR; Start 12/14/16 at 22:00 Pantoprazole 40 mg 40 mg DAILY@06 PO Last administered on 12/25/16 06:19; Admin Dose 40 MG; Start 12/18/16 at 06:00 Potassium Chloride/Dextrose/ Sod Cl (D5-NS + KCl 20 Meq) 1,000 ml @ 50 mls/hr Q20H IV Last administered on 12/25/16 06:21; Admin Dose 50 MLS/HR; Start at 12:00 CATA DUARTE MD Dec 25, 2016 16:56
== END 2016-12-25 20:00 | DRG 641 ==
LOC: E/R 13:57 → MS1 21:29 → INTOOBSV 21:29 → UNDOADMOB 21:29 → MS1 23:14 → OBSVTOIN 12-15 14:27
PROVIDERS: ADMIT Internal Medicine Nephrology; ATTEND Internal Medicine Nephrology
PROC: 0FB13ZX Excision of Right Lobe Liver, Percutaneous Approach, Diagnostic (ICD-10-PCS; principal; 2016-12-20)
DX: E87.1 Hypo-osmolality and hyponatremia (principal); E86.0 Dehydration; R63.0 Anorexia; C24.0 Malignant neoplasm of extrahepatic bile duct; C78.89 Secondary malignant neoplasm of other digestive organs; E87.6 Hypokalemia; I10 Essential (primary) hypertension; D72.829 Elevated white blood cell count, unspecified; R73.9 Hyperglycemia, unspecified; Z68.24 Body mass index [BMI] 24.0-24.9, adult; R74.8 Abnormal levels of other serum enzymes
CPT/HCPCS: 36415; 74000; 74170; 77012; 80048; 80053; 81003; 83690; 85025; 85610; 85730; 88104; 88307; 88313; 97116; 97163; 97530; C9113; G0378; J1200; J1650; J2250; J2270; J3010; J3480; J7030; Q9967